=== PATIENT | female | born 1945 | race Hispanic/Latino ===

== ENCOUNTER 2017-10-16 14:06 | Emergency (ER) | payer MEDICARE, BC ==
[2017-10-16 14:21] VITALS: TEMP 98.6
--- NOTE | 2017-10-16 15:46 | ED PDOC ---
Arrival/HPI - General Chief Complaint: Trauma Time Seen by Provider: 10/16/17 14:20 Historian: Patient - History of Present Illness Narrative History of Present Illness (Text): 10/16/17 15:43 71yo female with PMhx of hypertension bib Bls for complaint of tail bone pain and headache s/p trauma yesterday. Patient states she missed her soft, while trying to sit and fell backwards. States she hit her head on object that was behind her and sat hard on the floor very hard on her buttocks. States she did not take any medication for the pain. Came to ED for evaluation. Denies LOC, nausea, vomiting, focal weakness, urinary/fecal incontinence, dizziness, any other complaint. Past Medical History - Provider Review Nursing Documentation Reviewed: Yes - Infectious Disease Hx of Infectious Diseases: None - Cardiac Hx Hypertension: Yes - Psychiatric Hx Depression: Yes Hx Substance Use: No Family/Social History - Physician Review Nursing Documentation Reviewed: Yes Family/Social History: Unknown Family HX Smoking Status: Never Smoked Hx Alcohol Use: No Hx Substance Use: No Allergies/Home Meds Allergies/Adverse Reactions: Allergies Penicillins Allergy (Verified 10/16/17 15:00) ANAPHYLAXIS Home Medications: Home Meds Medication Instructions Recorded Confirmed Lisinopril [Zestril] 1 tab PO DAILY 10/16/17 10/16/17 Propranolol [Inderal] 10 mg PO DAILY 10/16/17 10/16/17 chlorproMAZINE [chlorpromazine HCl] 100 mg PO DAILY 10/16/17 10/16/17 Review of Systems - Physician Review All systems were reviewed & negative as marked: Yes - Review of Systems Constitutional: Normal Eyes: Normal ENT: Normal Respiratory: Normal Cardiovascular: Normal Gastrointestinal: Normal Genitourinary Female: Normal Musculoskeletal: Back Pain Skin: Normal Neurological: Headache. absent: Dizziness, Focal Weakness, Speech Changes, Facial Droop Endocrine: Normal Hemo/Lymphatic: Normal Psychiatric: Normal Physical Exam Vital Signs Reviewed: Yes Vital Signs Temp Pulse Resp BP Pulse Ox 10/16/17 14:21 98.6 F 78 18 166/81 H 96 Temperature: Afebrile Blood Pressure: Normal Pulse: Regular Respiratory Rate: Normal Appearance: Positive for: Well-Appearing, Non-Toxic, Comfortable Pain Distress: None Mental Status: Positive for: Alert and Oriented X 3 - Systems Exam Head: Present: Atraumatic, Normocephalic Pupils: Present: PERRL Extroacular Muscles: Present: EOMI Conjunctiva: Present: Normal Mouth: Present: Moist Mucous Membranes Neck: Present: Normal Range of Motion Respiratory/Chest: Present: Clear to Auscultation, Good Air Exchange. No: Respiratory Distress, Accessory Muscle Use Cardiovascular: Present: Regular Rate and Rhythm, Normal S1, S2. No: Murmurs Abdomen: Present: Normal Bowel Sounds. No: Tenderness, Distention, Peritoneal Signs Back: Present: Paraspinal Tenderness (Over the sacral/coccyx area). No: CVA Tenderness, Midline Tenderness, Pain with Leg Raise Upper Extremity: Present: Normal Inspection. No: Cyanosis, Edema Lower Extremity: Present: Normal Inspection. No: Edema Neurological: Present: GCS=15, CN II-XII Intact, Speech Normal, Motor Func Grossly Intact, Normal Sensory Function, Normal Cerebellar Funct, Norm Deep Tendon Reflexes, Gait Normal, Memory Normal, Normal 2Pt Descrimination, Other ( No focal neurological deficit) Skin: Present: Warm, Dry, Normal Color. No: Rashes Psychiatric: Present: Alert, Oriented x 3, Normal Insight, Normal Concentration Medical Decision Making ED Course and Treatment: 10/16/17 18:30 PT was AAO x3 and neurologically intact. Head CT - No acute finding Sacral/coccyx xray - No fracture noted Result was DW the pt. She will be DC home with a rx of Tramdol. Referred to her PMD. - RAD Interpretation Radiology Orders: 10/16/17 15:02 HEAD W/O CONTRAST [CT] Stat 10/16/17 15:03 SACRUM &/or COCCYX (MIN 2VW) [RAD] Stat - Medication Orders Current Medication Orders: Discontinued Medications Tramadol HCl (Ultram) 50 mg PO STAT STA Stop: 10/16/17 15:57 Last Admin: 10/16/17 16:13 Dose: 50 mg BRENNAN Pain Assessment Document 10/16/17 16:13 HI (Rec: 10/16/17 16:13 NH [id number]) Pain Reassessment Is this a pain reassessment? No Disposition/Present on Arrival - Present on Arrival Any Indicators Present on Arrival: No History of DVT/PE: No History of Uncontrolled Diabetes: No Urinary Catheter: No History of Decub. Ulcer: No History Surgical Site Infection Following: None - Disposition Have Diagnosis and Disposition been Completed?: Yes Diagnosis: Back pain, Fall, Head injury Disposition: HOME/ ROUTINE Disposition Time: 18:40 Patient Plan: Discharge Condition: STABLE Discharge Instructions (ExitCare): Preventing Falls in the Older Adult, Minor Head Injury Additional Instructions: Follow up with your doctor Return to ED for any new or worsening symptoms Prescriptions: traMADol [Ultram] 50 mg PO TID #10 tab Referrals: Shanti RENDON,Ludin Solano MD [Primary Care Provider] - Follow up with primary Forms: [employer] (Tunisian)
--- NOTE | 2017-10-16 18:05 | CT ---
PROCEDURE: CT HEAD WITHOUT CONTRAST. HISTORY: head injury COMPARISON: None available. TECHNIQUE: Axial computed tomography images were obtained through the head/brain without intravenous contrast. Radiation dose: Total exam DLP = 1019.94 mGy-cm. This CT exam was performed using one or more of the following dose reduction techniques: Automated exposure control, adjustment of the mA and/or kV according to patient size, and/or use of iterative reconstruction technique. FINDINGS: HEMORRHAGE: No intracranial hemorrhage. BRAIN: No mass effect or edema. Cortical atrophy, periventricular small vessel disease. VENTRICLES: Unremarkable. No hydrocephalus. CALVARIUM: Unremarkable. PARANASAL SINUSES: Unremarkable as visualized. No significant inflammatory changes. MASTOID AIR CELLS: Unremarkable as visualized. No inflammatory changes. OTHER FINDINGS: None. IMPRESSION: No acute intracranial abnormalities. No significant findings to account for the clinical presentation.
[2017-10-16 19:26] VITALS: BP 159/75; PULSE 72; RESP 16; O2SAT 99
--- NOTE | 2017-10-17 08:38 | RAD ---
PROCEDURE: Radiographs of the Sacrum and Coccyx HISTORY: back pain s/p trauma COMPARISON: None available. TECHNIQUE: Frontal and lateral views of the sacrum and coccyx FINDINGS: BONES: Sacrum and coccyx unremarkable. No fracture or focal lesion. SACROILIAC JOINTS: Unremarkable. OTHER FINDINGS: None. IMPRESSION: Unremarkable radiographs of the sacrum and coccyx.
== END 2017-10-16 19:16 | disposition home or self-care (01) ==
LOC: ED 14:06
DX: S09.90XA Unspecified injury of head, initial encounter (principal); W08.XXXA Fall from other furniture, initial encounter; I10 Essential (primary) hypertension

== ENCOUNTER 2018-01-07 15:49 | Emergency (ER) | payer MEDICARE, BC ==
[2018-01-07 15:55] VITALS: BMI 29.7
[2018-01-07 16:02] VITALS: TEMP 97.6
--- NOTE | 2018-01-07 16:09 | ED PDOC ---
Arrival/HPI - General Chief Complaint: Lower Extremity Problem/Injury Time Seen by Provider: 01/07/18 16:00 Historian: Patient - History of Present Illness Narrative History of Present Illness (Text): 01/07/18 16:06 72 year old woman, with no significant past medical history, who presents to the emergency department complaining of left buttox pain that radiates to the sciatic notch today. Patient notes she fell a couple days ago. Patient denies any fever, chills, chest pain, shortness of breath, nausea, vomiting, diarrhea, urinary symptoms, neck pain, headache, dizziness, or any other complaints. Time/Duration: Prior to Arrival Symptom Onset: Gradual Symptom Course: Unchanged Activities at Onset: Light Context: Home Past Medical History - Provider Review Nursing Documentation Reviewed: Yes - Infectious Disease Hx of Infectious Diseases: None - Reproductive Menopause: Yes - Cardiac Hx Cardiac Disorders: Yes Hx Hypertension: Yes - Pulmonary Hx Respiratory Disorders: No - Neurological Hx Neurological Disorder: Yes Other/Comment: "nerve issues" - HEENT Hx HEENT Disorder: No - Renal Hx Renal Disorder: No - Endocrine/Metabolic Hx Endocrine Disorders: No - Hematological/Oncological Hx Blood Disorders: No - Integumentary Hx Dermatological Disorder: No - Musculoskeletal/Rheumatological Hx Musculoskeletal Disorders: No - Gastrointestinal Hx Gastrointestinal Disorders: No - Genitourinary/Gynecological Hx Genitourinary Disorders: No - Psychiatric Hx Psychophysiologic Disorder: Yes Hx Depression: Yes Hx Substance Use: No Family/Social History - Physician Review Nursing Documentation Reviewed: Yes Family/Social History: Unknown Family HX Smoking Status: Never Smoked Hx Alcohol Use: No Hx Substance Use: No Allergies/Home Meds Allergies/Adverse Reactions: Allergies Penicillins Allergy (Verified 01/07/18 15:54) ANAPHYLAXIS Home Medications: Home Meds Medication Instructions Recorded Confirmed Lisinopril [Zestril] 1 tab PO DAILY 10/16/17 01/07/18 Propranolol [Inderal] 10 mg PO DAILY 10/16/17 01/07/18 chlorproMAZINE [chlorpromazine HCl] 100 mg PO DAILY 10/16/17 01/07/18 Review of Systems - Physician Review All systems were reviewed & negative as marked: Yes - Review of Systems Constitutional: Normal Eyes: Normal ENT: Normal Respiratory: Normal. absent: SOB, Cough Cardiovascular: Normal. absent: Chest Pain Gastrointestinal: Normal. absent: Abdominal Pain Genitourinary Female: Normal. absent: Dysuria, Frequency, Hematuria, Urine Output Changes Musculoskeletal: Other (left buttox pain that radiated to the sciatic notch) Skin: Normal. absent: Rash Neurological: Normal. absent: Headache, Dizziness Endocrine: Normal Hemo/Lymphatic: Normal Psychiatric: Normal Physical Exam Vital Signs Reviewed: Yes Vital Signs Temp Pulse Resp BP Pulse Ox 01/07/18 16:00 97.6 F 76 20 166/78 H 97 Temperature: Afebrile Blood Pressure: Hypertensive Pulse: Regular Respiratory Rate: Normal Appearance: Positive for: Well-Appearing, Non-Toxic, Comfortable Pain Distress: None Mental Status: Positive for: Alert and Oriented X 3 - Systems Exam Head: Present: Atraumatic, Normocephalic Pupils: Present: PERRL Extroacular Muscles: Present: EOMI Conjunctiva: Present: Normal Mouth: Present: Moist Mucous Membranes Neck: Present: Normal Range of Motion. No: Meningeal Signs, MIDLINE TENDERNESS , JVD Respiratory/Chest: Present: Clear to Auscultation, Good Air Exchange. No: Respiratory Distress, Accessory Muscle Use Cardiovascular: Present: Regular Rate and Rhythm, Normal S1, S2. No: Murmurs Abdomen: No: Tenderness, Distention, Peritoneal Signs Back: Present: Normal Inspection Upper Extremity: Present: Normal Inspection. No: Cyanosis, Edema Lower Extremity: Present: Normal Inspection. No: Edema Neurological: Present: GCS=15, CN II-XII Intact, Speech Normal Skin: Present: Warm, Dry, Normal Color. No: Rashes Psychiatric: Present: Alert, Oriented x 3, Normal Insight, Normal Concentration Medical Decision Making ED Course and Treatment: 01/07/18 16:11 Impression: 72 year old female presents to the emergency department complaining of left buttox pain radiating to the sciatic notch. Plan: -- CT Abd and Pelvis -- CT Hip -- Lumbar Spine -- Motrin -- Zofran -- Percocet -- Reassess and disposition Progress Notes: 01/07/18 18:38 CT Abdomen Pelvis reviewed, shows: Lung bases: Mild bilateral dependent atelectasis. Minimal linear atelectasis bilaterally. ABDOMEN: Liver: Unremarkable. Gallbladder and bile ducts: Unremarkable. No calcified stones. No ductal dilation. Pancreas: Unremarkable. No ductal dilation. Spleen: Unremarkable. No splenomegaly. Adrenals: Unremarkable. No mass. Kidneys and ureters: Unremarkable. No obstructing stones. No hydronephrosis. Stomach and bowel: Chronic diverticulosis. No colitis or diverticulitis. PELVIS: Appendix: No findings to suggest acute appendicitis. Bladder: Well-distended bladder. No stones. Reproductive: Unremarkable as visualized. ABDOMEN and PELVIS: Intraperitoneal space: Unremarkable. No free air. No significant fluid collection. Bones/joints: Degenerative change. Spondylosis deformans. Oblique subacute fracture through S5 with minimal callus formation. Soft tissues: Subcutaneous stranding in the medial gluteal regions bilaterally, incompletely imaged. Vasculature: Lack of intravenous contrast limits the sensitivity of solid organ pathology. There is vascular calcification. No abdominal aortic aneurysm. Lymph nodes: Scattered subcentimeter nonspecific lymph nodes in the mesentery and periaortic region. IMPRESSION: Oblique subacute fracture through S5 with minimal callus formation. 01/07/18 18:52 CT Hip reviewed, shows: Bones/joints: Subacute or possibly chronic S5 oblique fracture. Some degenerative change. No dislocation. Soft tissues: Minimal medial gluteal subcutaneous fat stranding. IMPRESSION: Subacute or possibly chronic S5 oblique fracture. CT Rt Lower Extremity reviewed, shows: Bones/joints: Subacute or possibly chronic S5 oblique fracture. Some degenerative change. No dislocation. Soft tissues: Minimal medial gluteal subcutaneous fat stranding. IMPRESSION: Subacute or possibly chronic S5 oblique fracture. - RAD Interpretation Radiology Orders: 01/07/18 16:06 ABD & PELVIS W/O PO OR IV CONT [CT] Stat CT HIP W/O CONTRAST BILATERAL [CT] Stat LUMBAR SPINE W/O CONTRAST [CT] Stat - Medication Orders Current Medication Orders: Discontinued Medications Ibuprofen (Motrin Tab) 800 mg PO STAT STA Stop: 01/07/18 16:11 Last Admin: 01/07/18 16:48 Dose: 800 mg MAR Pain/Vitals Document 01/07/18 16:48 HI (Rec: 01/07/18 16:48 HI [id number]) Pain Reassessment Is This A Pain ReAssessment? No Sleep Is patient sleeping during reassessment? No Presence of Pain Presence of Pain Yes Location Left, Right or Bilateral Left Upper or Lower Lower Pain Location Body Site Back Ondansetron HCl (Zofran Odt) 8 mg PO STAT STA Stop: 01/07/18 16:11 Last Admin: 01/07/18 16:47 Dose: 8 mg Oxycodone/Acetaminophen (Percocet 5/325 Mg Tab) 2 tab PO STAT STA Stop: 01/07/18 16:11 Last Admin: 01/07/18 16:47 Dose: 2 tab MAR Pain Assessment Document 01/07/18 16:47 HI (Rec: 01/07/18 16:48 HI [id number]) Pain Reassessment Is this a pain reassessment? No Sleep Is patient sleeping during reassessment? No Presence of Pain Presence of Pain Yes Location Left, Right or Bilateral Left Upper or Lower Lower Pain Location Body Site Back - Scribe Statement The provider has reviewed the documentation as recorded by the Scribe Chandrika Ch All medical record entries made by the Scribe were at my direction and personally dictated by me. I have reviewed the chart and agree that the record accurately reflects my personal performance of the history, physical exam, medical decision making, and the department course for this patient. I have also personally directed, reviewed, and agree with the discharge instructions and disposition. Disposition/Present on Arrival - Present on Arrival Any Indicators Present on Arrival: No History of DVT/PE: No History of Uncontrolled Diabetes: No Urinary Catheter: No History of Decub. Ulcer: No History Surgical Site Infection Following: None - Disposition Have Diagnosis and Disposition been Completed?: Yes Diagnosis: Sciatica, Closed sacral fracture Disposition: HOME/ ROUTINE Disposition Time: 18:57 Patient Plan: Discharge Condition: GOOD Additional Instructions: Mrs Lopez- You have a broken sacrum and sciatica. All three medicines, Percocet, Zofran and Ibuprophen are three times a day, with food. Follow up with Dr. Juárez, return to us if problems. Best- Dr. Lalit Beaver Referrals: John Lynn APN [Primary Care Provider] - Follow up with primary Isis Juárez MD [Staff Provider] - Follow up with primary Forms: [employer] (Icelandic)
[2018-01-07] MEDS ORDERED: Oxycodone/Acetaminophen 5/325 mg Tab PO STA (16:10)
--- NOTE | 2018-01-07 18:34 | CT ---
EXAM: CT Abdomen and Pelvis Without Intravenous Contrast CLINICAL HISTORY: 72 years old, female; Injury or trauma; Fall; Initial encounter; Sprain or strain; Injury date: 01-07-18; Additional info: Fall, pain in buttox and left hip TECHNIQUE: Axial computed tomography images of the abdomen and pelvis without intravenous contrast. All CT scans at this facility use one or more dose reduction techniques, viz.: automated exposure control; ma/kV adjustment per patient size (including targeted exams where dose is matched to indication; i.e. head); or iterative reconstruction technique. Coronal and sagittal reformatted images were created and reviewed. COMPARISON: DX - SACRUM /OR COCCYX (MIN 2VW) 2017-10-16 17:43 FINDINGS: Lung bases: Mild bilateral dependent atelectasis. Minimal linear atelectasis bilaterally. ABDOMEN: Liver: Unremarkable. Gallbladder and bile ducts: Unremarkable. No calcified stones. No ductal dilation. Pancreas: Unremarkable. No ductal dilation. Spleen: Unremarkable. No splenomegaly. Adrenals: Unremarkable. No mass. Kidneys and ureters: Unremarkable. No obstructing stones. No hydronephrosis. Stomach and bowel: Chronic diverticulosis. No colitis or diverticulitis. PELVIS: Appendix: No findings to suggest acute appendicitis. Bladder: Well-distended bladder. No stones. Reproductive: Unremarkable as visualized. ABDOMEN and PELVIS: Intraperitoneal space: Unremarkable. No free air. No significant fluid collection. Bones/joints: Degenerative change. Spondylosis deformans. Oblique subacute fracture through S5 with minimal callus formation. Soft tissues: Subcutaneous stranding in the medial gluteal regions bilaterally, incompletely imaged. Vasculature: Lack of intravenous contrast limits the sensitivity of solid organ pathology. There is vascular calcification. No abdominal aortic aneurysm. Lymph nodes: Scattered subcentimeter nonspecific lymph nodes in the mesentery and periaortic region. IMPRESSION: Oblique subacute fracture through S5 with minimal callus formation.
--- NOTE | 2018-01-07 18:39 | CT ---
EXAM: CT Lumbar Spine Without Intravenous Contrast CLINICAL HISTORY: 72 years old, female; Injury or trauma; Fall; Initial encounter; Sprain or strain, lumbar ligaments; Injury date: 01-07-18; Injury details: Pain lt hip; Additional info: Fall, pain in buttox and left hip TECHNIQUE: Axial computed tomography images of the lumbar spine without intravenous contrast. All CT scans at this facility use one or more dose reduction techniques, viz.: automated exposure control; ma/kV adjustment per patient size (including targeted exams where dose is matched to indication; i.e. head); or iterative reconstruction technique. Coronal and sagittal reformatted images were created and reviewed. COMPARISON: No relevant prior studies available. FINDINGS: Vertebrae: Spondylosis deformans of the lumbar spine. Old fracture through the anterior superior osteophyte at L2 on the left. Left L4 and L5 neural foraminal narrowing. Degenerative change of the facet joints of the lower lumbar spine. Sacrum/coccyx: Oblique subacute fracture through S5. Discs/spinal canal/neural foramina: Posterior disc bulge at all levels though more prominent at L2/3 through L4/5, which narrows the spinal canal, along with ligamentum flavum hypertrophy. Soft tissues: Unremarkable. Vasculature: There is vascular calcification. No abdominal aortic aneurysm. Other findings: Vacuum phenomenon at the sacroiliac joints bilaterally. IMPRESSION: Oblique subacute fracture through S5. Degenerative changes as above.
--- NOTE | 2018-01-07 18:43 | CT ---
EXAM: CT Left Lower Extremity Without Intravenous Contrast, Hip CLINICAL HISTORY: 72 years old, female; Injury or trauma; Fall; Initial encounter; Blunt trauma; Hip; Left; Injury date: 01-07-18; Injury details: Pain in lt hip; Additional info: Fall, pain in buttox and left hip TECHNIQUE: Axial computed tomography images of the left hip without intravenous contrast. All CT scans at this facility use one or more dose reduction techniques, viz.: automated exposure control; ma/kV adjustment per patient size (including targeted exams where dose is matched to indication; i.e. head); or iterative reconstruction technique. Coronal and sagittal reformatted images were created and reviewed. COMPARISON: CT - ABD PELVIS W/O PO OR IV CONT 2018-01-07 17:24 FINDINGS: Bones/joints: Subacute or possibly chronic S5 oblique fracture. Some degenerative change. No dislocation. Soft tissues: Minimal medial gluteal subcutaneous fat stranding. IMPRESSION: Subacute or possibly chronic S5 oblique fracture. EXAM: CT Right Lower Extremity Without Intravenous Contrast, Hip CLINICAL HISTORY: 72 years old, female; Injury or trauma; Fall; Initial encounter; Blunt trauma; Hip; Left; Injury date: 01-07-18; Injury details: Pain in lt hip; Additional info: Fall, pain in buttox and left hip TECHNIQUE: Axial computed tomography images of the right hip without intravenous contrast. All CT scans at this facility use one or more dose reduction techniques, viz.: automated exposure control; ma/kV adjustment per patient size (including targeted exams where dose is matched to indication; i.e. head); or iterative reconstruction technique. Coronal and sagittal reformatted images were created and reviewed. COMPARISON: CT - ABD PELVIS W/O PO OR IV CONT 2018-01-07 17:24 FINDINGS: Bones/joints: Subacute or possibly chronic S5 oblique fracture. Some degenerative change. No dislocation. Soft tissues: Minimal medial gluteal subcutaneous fat stranding.
[2018-01-07 19:37] VITALS: BP 145/75; PULSE 78; RESP 18; O2SAT 98
== END 2018-01-07 19:37 | disposition home or self-care (01) ==
LOC: ED 15:49
DX: M54.30 Sciatica, unspecified side (principal); S32.10XA Unspecified fracture of sacrum, initial encounter for closed fracture; W19.XXXA Unspecified fall, initial encounter; I10 Essential (primary) hypertension

== ENCOUNTER 2018-01-20 13:08 | Emergency (ER) | payer MEDICARE, BC ==
[2018-01-20 13:09] VITALS: BMI 29.7
[2018-01-20 13:18] VITALS: RESP 18
[2018-01-20 14:16] LABS: BASO # 0.02 K/mm3 (0.0-2.0); BASO % 0.4 % (0.0-3.0); EOS # 0.1 (0.0-0.7); EOS % 2.4 % (1.5-5.0); GRAN # 3.04 (1.4-6.5); GRAN % 61.4 % (50.0-68.0); HEMOGLOBIN 10.1 g/dL (12.0-16.0); LYMPH # 1.5 (1.2-3.4); LYMPH % 29.3 % (22.0-35.0); MEAN CORPUSCULAR HEMOGLOBIN 29.2 pg (25.0-35.0); MEAN CORPUSCULAR HGB CONC 34.4 g/dl (31.0-37.0); MEAN PLATELET VOLUME 8.7 fl (7.0-11.0); MONO # 0.3 (0.1-0.6); MONO % 6.5 % (1.0-6.0); RBC 3.46 10^6/uL (3.5-6.1); RED CELL DISTRIBUTION WIDTH 13.5 % (11.5-14.5)
[2018-01-20 14:26] LABS: ALB/GLOB RATIO 1.4 (1.1-1.8); ALBUMIN 4.3 g/dL (3.0-4.8); ALT/SGPT 43 U/L (7-56); AST/SGOT 36 U/L (14-36); BLOOD UREA NITROGEN 22 mg/dL (7-21); CALCIUM 9.5 mg/dL (8.4-10.5); GFR AFRICAN-AMERICAN > 60; GFR NON-AFRICAN AMERICAN 55
[2018-01-20 14:35] LABS: B-TYPE NATRIURETIC PEPTIDE 92.5 pg/mL (0-450)
--- NOTE | 2018-01-20 14:42 | RAD ---
HISTORY: leg swelling COMPARISON: No prior. FINDINGS: LUNGS: No active pulmonary disease. PLEURA: No significant pleural effusion identified, no pneumothorax apparent. CARDIOVASCULAR: Mild cardiomegaly OSSEOUS STRUCTURES: No significant abnormalities. VISUALIZED UPPER ABDOMEN: Normal. OTHER FINDINGS: None. IMPRESSION: No active disease.
[2018-01-20 14:58] LABS: PH,URINE 7.5 (4.7-8.0); URINE APPEARANCE CLEAR (CLEAR); URINE BILIRUBIN NEGATIVE (NEGATIVE); URINE BLOOD NEGATIVE (NEGATIVE); URINE COLOR LIGHT YELLOW (YELLOW); URINE GLUCOSE (UA) NEGATIVE (NEGATIVE); URINE LEUKOCYTE ESTERASE LARGE Leu/uL (NEGATIVE); URINE PROTEIN NEGATIVE mg/dL (<30 mg/dL); URINE UROBILINOGEN 0.2 E.U./dL (<1 E.U./dL)
[2018-01-20 15:12] LABS: URINE EPITHELIAL CELLS 0 - 2 /hpf (0-5); URINE RBC NEGATIVE /hpf (0-2); URINE WBC 0 - 2 /hpf (0-6)
--- NOTE | 2018-01-20 16:10 | ED PDOC ---
Arrival/HPI - General Historian: Patient - General Chief Complaint: Lower Extremity Problem/Injury Time Seen by Provider: 01/20/18 13:26 - History of Present Illness Narrative History of Present Illness (Text): 01/20/18 15:36 72yr old female presents today with bilateral lower leg swelling. pt denies trauma or injury. pt denies CP or SOB. no vomiting/diarrhea. no dizziness or weakness. pt denies abdominal pain. no urinary symptoms. no fever/chills. pt states she woke up today and noticed some swelling to the lower legs/ankles bilaterally. pt denies numbness, weakness, or tingling in the extremity. no other complaints. (Marina Mcdonald) Past Medical History - Provider Review Nursing Documentation Reviewed: Yes - Travel History Have you recently traveled outside [place] w/in the past 3 mons?: No - Infectious Disease Hx of Infectious Diseases: None - Reproductive Menopause: Yes - Cardiac Hx Cardiac Disorders: Yes Hx Hypertension: Yes - Pulmonary Hx Respiratory Disorders: No - Neurological Hx Neurological Disorder: Yes Other/Comment: "nerve issues" - HEENT Hx HEENT Disorder: No - Renal Hx Renal Disorder: No - Endocrine/Metabolic Hx Endocrine Disorders: No - Hematological/Oncological Hx Blood Disorders: No - Integumentary Hx Dermatological Disorder: No - Musculoskeletal/Rheumatological Hx Musculoskeletal Disorders: No - Gastrointestinal Hx Gastrointestinal Disorders: No - Genitourinary/Gynecological Hx Genitourinary Disorders: No - Psychiatric Hx Psychophysiologic Disorder: Yes Hx Depression: Yes Hx Substance Use: No Family/Social History - Physician Review Nursing Documentation Reviewed: Yes Family/Social History: Unknown Family HX Smoking Status: Never Smoked Hx Alcohol Use: No Hx Substance Use: No Allergies/Home Meds Allergies/Adverse Reactions: Allergies Penicillins Allergy (Verified 01/20/18 13:18) ANAPHYLAXIS Home Medications: Home Meds Medication Instructions Recorded Confirmed Lisinopril [Zestril] 20 mg PO DAILY 10/16/17 01/20/18 Propranolol [Inderal] 10 mg PO DAILY 10/16/17 01/20/18 chlorproMAZINE [chlorpromazine HCl] 100 mg PO DAILY 10/16/17 01/20/18 Review of Systems - Review of Systems Constitutional: absent: Fatigue, Fevers Respiratory: absent: SOB, Cough Cardiovascular: absent: Chest Pain, Palpitations, Syncope Gastrointestinal: absent: Abdominal Pain, Nausea, Vomiting Genitourinary Female: absent: Dysuria, Frequency, Hematuria, Vaginal Bleeding, Vaginal Discharge Musculoskeletal: Other (bilateral leg swelling). absent: Arthralgias, Back Pain , Neck Pain Skin: absent: Rash, Pruritis Neurological: absent: Headache, Dizziness Psychiatric: absent: Anxiety, Depression Physical Exam Vital Signs Reviewed: Yes Temperature: Afebrile Blood Pressure: Normal Pulse: Regular Respiratory Rate: Normal Appearance: Positive for: Well-Appearing, Non-Toxic, Comfortable Pain Distress: None Mental Status: Positive for: Alert and Oriented X 3 - Systems Exam Head: Present: Atraumatic Mouth: Present: Moist Mucous Membranes Respiratory/Chest: Present: Clear to Auscultation Cardiovascular: Present: Regular Rate and Rhythm Abdomen: No: Tenderness, Distention, Peritoneal Signs, Rebound, Guarding Back: Present: Normal Inspection. No: CVA Tenderness, Midline Tenderness, Paraspinal Tenderness Upper Extremity: Present: Normal ROM Lower Extremity: Present: Normal ROM, Swelling (+ minimal swelling b/l lower legs/ankles bilaterally; non pitting edema), Neurovascularly Intact, Capillary Refill < 2 s. No: Tenderness, Erythema, Deformity Neurological: Present: GCS=15, Speech Normal Skin: Present: Warm, Dry, Normal Color. No: Rashes Psychiatric: Present: Alert, Oriented x 3 Vital Signs Temp Pulse Resp BP Pulse Ox 01/20/18 18:09 98.2 F 78 140/78 97 01/20/18 16:39 98.6 F 76 18 136/80 97 01/20/18 13:16 98.6 F 71 18 142/75 99 01/20/18 13:09 98.6 F 71 18 142/75 99 Medical Decision Making ED Course and Treatment: 01/20/18 16:33 Patient is nontoxic well-appearing in no distress with stable vital signs lungs are clear to auscultation bilaterally. CBC within normal limits CMP within normal limits Troponin within normal limits EKG: NSR at 71 b/m no st elevations, rbbb, normal axis. reviewed by dr. alonzo. Chest x-ray shows cardiomegaly mild Venous duplex of the lower extremities bilaterally: Negative for DVT verbal report by solar lab technician Patient reassessment; patient is nontoxic well-appearing in no distress with stable vital signs pt seen and evaluated by dr. alonzo. I discussed the results with patient about followup with a primary care physician within the next 2 days as well as the orthopedist. I've advised return if symptoms worsen persist or if there's concerning symptoms develop. Patient verbalizes understanding of discharge instructions and need for immediate followup. all aspects of this case were discussed the attending of record. Impression: Lower leg swelling Followup primary care physician within the next 2 days Return if symptoms worsen persist or if new symptoms develop (Marina Mcdonald) 01/22/18 07:22 Patient with no chest pain, no shortness of breath. No cellulitis noted. Strong distal pulses noted. No dsypnea with exertion. Labs reviewed with patient. On exam, no palpable lower abdominal masses. Ambulatory with no back pain or knee or hip pain reported. Patient advised closed follow-up with PMD for re- evaluation later this week. Stressed need for close follow-up. (Regan Alonzo) - Lab Interpretations Microbiology Results: Microbiology Results 01/20/18 15:29 Urine,Clean Catch Urine Culture - Final No Growth (<1,000 CFU/ML) Lab Results: 01/20/18 14:14 01/20/18 14:14 Lab Results 01/20/18 16:00: Lactate Dehydrogenase 541, Total Creatine Kinase 195, Troponin I < 0.01 01/20/18 14:45: Urine Color Light yellow, Urine Appearance Clear, Urine pH 7.5, Ur Specific [place] 1.010, Urine Protein Negative, Urine Glucose (UA) Negative, Urine Ketones Negative, Urine Blood Negative, Urine Nitrate Negative, Urine Bilirubin Negative, Urine Urobilinogen 0.2, Ur Leukocyte Esterase Large H, Urine RBC Negative, Urine WBC 0 - 2, Ur Epithelial Cells 0 - 2 01/20/18 14:14: WBC 5.0, RBC 3.46 L, Hgb 10.1 L, Hct 29.4 L, MCV 85.0, MCH 29.2 , MCHC 34.4, RDW 13.5, Plt Count 251, MPV 8.7, Gran % 61.4, Lymph % (Auto) 29.3 , [place] % (Auto) 6.5 H, Eos % (Auto) 2.4, Baso % (Auto) 0.4, Gran # 3.04, Lymph # (Auto) 1.5, [place] # (Auto) 0.3, Eos # (Auto) 0.1, Baso # (Auto) 0.02 01/20/18 14:14: Sodium 134, Potassium 4.3, Chloride 95 L, Carbon Dioxide 27, Anion Gap 16, BUN 22 H, Creatinine 1.0, Est GFR ( Amer) > 60, Est GFR ( Non-Af Amer) 55, Random Glucose 86, Calcium 9.5, Total Bilirubin 0.2, AST 36, ALT 43, Alkaline Phosphatase 61, NT-Pro-B Natriuret Pep 92.5, Total Protein 7.4 , Albumin 4.3, Globulin 3.1, Albumin/Globulin Ratio 1.4 - RAD Interpretation Radiology Orders: 01/20/18 13:48 CHEST PORTABLE [RAD] Stat DUPLEX LOWER EXTRM VEIN BILAT [US] Stat Disposition/Present on Arrival - Present on Arrival Any Indicators Present on Arrival: No History of DVT/PE: No History of Uncontrolled Diabetes: No Urinary Catheter: No History of Decub. Ulcer: No History Surgical Site Infection Following: None - Disposition Have Diagnosis and Disposition been Completed?: Yes Disposition Time: 16:00 - Disposition Diagnosis: Leg edema Disposition: HOME/ ROUTINE Condition: GOOD Discharge Instructions (ExitCare): Dependent Edema (DC) Additional Instructions: For ANY chest pain, any shortness of breath, any redness or pain, ANY abdominal pain, any difficulty urinating, any vaginal bleeding, any lightheadedness or dizziness, any back pain, any rash, any persistent or worsening of symptoms, get rechecked. Follow-up with your physician this week to have your legs rechecked and symptoms rechecked. No strenuous activity. For any shortness of breath or fatigue get rechecked immediately. Referrals: John Lynn APN [Primary Care Provider] - Follow up with primary Forms: [email or web address] ([place])
[2018-01-20 16:42] LABS: TROPONIN I < 0.01 ng/mL
[2018-01-20 16:47] VITALS: O2SAT 97
--- NOTE | 2018-01-20 18:02 | US ---
HISTORY: Leg pain and swelling. Evaluate for DVT PHYSICIAN(S): Richard Shelton MD. TECHNIQUE: Duplex sonography and color-flow Doppler with graded compression were used to evaluate the deep venous systems of both lower extremities. The exam is somewhat limited by edema FINDINGS: The visualized deep venous systems of both lower extremities are sonographically normal and compressible. Normal wave forms and augmentation are seen. There is no sonographic evidence for deep venous thrombosis in the visualized segments of both lower extremities. IMPRESSION: No sonographic evidence for deep venous thrombosis in the visualized segments of both lower extremities.
[2018-01-20 18:10] VITALS: BP 140/78; PULSE 78; TEMP 98.2
--- NOTE | 2018-01-21 10:00 | CARD ---
APPROVED REPORT EKG Measurement Heart [id number] <Conclusion> Normal sinus rhythm Right bundle branch block Possible Lateral infarct, age undetermined LAD
== END 2018-01-20 18:09 | disposition home or self-care (01) ==
LOC: ED 13:08
DX: R60.0 Localized edema (principal); I10 Essential (primary) hypertension

== ENCOUNTER 2018-03-18 05:45 | Emergency (ER) | payer MEDICARE, BC ==
[2018-03-18 05:47] VITALS: BMI 29.4
[2018-03-18 05:53] VITALS: TEMP 97.4
--- NOTE | 2018-03-18 06:39 | ED PDOC ---
Arrival/HPI - General Chief Complaint: Upper Extremity Problem/Injury Time Seen by Provider: 03/18/18 05:46 - History of Present Illness Narrative History of Present Illness (Text): 03/18/18 06:37 72 yo female, hx of htn, presents with left shoulder pain since october. pt poor historian, states no known trauma. pt poor historian. pt does not request pain meds. no fevers. no other complaints. Past Medical History - Infectious Disease Hx of Infectious Diseases: None - Reproductive Menopause: Yes - Cardiac Hx Cardiac Disorders: Yes Hx Hypertension: Yes - Pulmonary Hx Respiratory Disorders: No - Neurological Hx Neurological Disorder: Yes Other/Comment: "nerve issues" - HEENT Hx HEENT Disorder: No - Renal Hx Renal Disorder: No - Endocrine/Metabolic Hx Endocrine Disorders: No - Hematological/Oncological Hx Blood Disorders: No - Integumentary Hx Dermatological Disorder: No - Musculoskeletal/Rheumatological Hx Musculoskeletal Disorders: No - Gastrointestinal Hx Gastrointestinal Disorders: No - Genitourinary/Gynecological Hx Genitourinary Disorders: No - Psychiatric Hx Psychophysiologic Disorder: Yes Hx Depression: Yes Hx Substance Use: No Family/Social History - Physician Review Nursing Documentation Reviewed: Yes Family/Social History: Unknown Family HX Smoking Status: Never Smoked Hx Alcohol Use: No Hx Substance Use: No Allergies/Home Meds Allergies/Adverse Reactions: Allergies Penicillins Allergy (Verified 03/18/18 05:47) ANAPHYLAXIS lemon Adverse Reaction (Verified 03/18/18 05:47) RASH Home Medications: Home Meds Medication Instructions Recorded Confirmed Lisinopril [Zestril] 20 mg PO DAILY 10/16/17 03/18/18 Propranolol [Inderal] 10 mg PO DAILY 10/16/17 03/18/18 chlorproMAZINE [Thorazine] 1 tab PO HS 03/18/18 03/18/18 Review of Systems - Review of Systems Constitutional: Normal Eyes: Normal ENT: Normal Respiratory: Normal Cardiovascular: Normal Gastrointestinal: Normal Genitourinary Female: Normal Musculoskeletal: Other (shoulder left pain) Skin: Normal Neurological: Normal Endocrine: Normal Hemo/Lymphatic: Normal Psychiatric: Normal Physical Exam Vital Signs Temp Pulse Resp BP Pulse Ox 03/18/18 07:16 81 18 135/78 99 03/18/18 05:50 97.4 F L 79 20 145/80 97 Temperature: Afebrile Blood Pressure: Normal Pulse: Regular Respiratory Rate: Normal Appearance: Positive for: Well-Appearing, Non-Toxic, Comfortable Pain Distress: None Mental Status: Positive for: Alert and Oriented X 3 - Systems Exam Head: Present: Atraumatic, Normocephalic Pupils: Present: PERRL Extroacular Muscles: Present: EOMI Conjunctiva: Present: Normal Mouth: Present: Moist Mucous Membranes Neck: Present: Normal Range of Motion Respiratory/Chest: Present: Clear to Auscultation, Good Air Exchange. No: Respiratory Distress, Accessory Muscle Use Cardiovascular: Present: Regular Rate and Rhythm, Normal S1, S2. No: Murmurs Abdomen: No: Tenderness, Distention, Peritoneal Signs Back: Present: Normal Inspection Upper Extremity: Present: Normal Inspection. No: Cyanosis, Edema Lower Extremity: Present: Normal Inspection. No: Edema Neurological: Present: GCS=15, CN II-XII Intact, Speech Normal, Motor Func Grossly Intact Skin: Present: Warm, Dry, Normal Color. No: Rashes Psychiatric: Present: Alert, Oriented x 3, Normal Insight, Normal Concentration , Normal Affect, Normal Mood. No: Delusional, Hallucinations Medical Decision Making ED Course and Treatment: 03/22/18 07:36 chronic shoulder pain. no cp. xr neg, does not want pain meds. stable for dc. - RAD Interpretation Radiology Orders: 03/18/18 06:04 SHOULDER LEFT [RAD] Stat - Medication Orders Current Medication Orders: Discontinued Medications Acetaminophen (Tylenol 325mg Tab) 975 mg PO STAT STA Stop: 03/18/18 06:07 Last Admin: 03/18/18 07:15 Dose: Not Given Non-Admin Reason: Patient Refused Disposition/Present on Arrival - Present on Arrival Any Indicators Present on Arrival: No History of DVT/PE: No History of Uncontrolled Diabetes: No Urinary Catheter: No History of Decub. Ulcer: No History Surgical Site Infection Following: None - Disposition Have Diagnosis and Disposition been Completed?: Yes Diagnosis: Shoulder pain Disposition: HOME/ ROUTINE Disposition Time: 07:00 Condition: STABLE Discharge Instructions (ExitCare): Shoulder Pain (DC) Additional Instructions: please see specialist. return to er with worsening symptoms or concerns. Prescriptions: Naproxen [Naprosyn] 500 mg PO BID PRN #14 tablet PRN Reason: Pain, Mild (1-3) Referrals: John Lynn APN [Primary Care Provider] - Follow up with primary Alex Graham DO [Staff Provider] - Follow up with primary Forms: [employer] (Mauritanian)
[2018-03-18 07:18] VITALS: BP 135/78; PULSE 81; RESP 18; O2SAT 99
--- NOTE | 2018-03-18 08:48 | RAD ---
Date of service: 03/18/2018 PROCEDURE: Radiographs of the Left Shoulder HISTORY: pain COMPARISON: No prior. FINDINGS: BONES: Bone alignment and mineralization are normal. There is no acute displaced fracture or bone destruction. JOINTS: Normal. Glenohumeral and acromioclavicular joints preserved. No osteoarthritis. SOFT TISSUES: The small curvilinear calcification posterior lateral to the humeral head. OTHER FINDINGS: None. IMPRESSION: No acute fracture or dislocation. No significant degenerative osteoarthrosis. Small curvilinear calcification posterior lateral to the humeral head may represent calcific tendinitis in the appropriate clinical setting.
== END 2018-03-18 07:16 | disposition home or self-care (01) ==
LOC: ED 05:45
DX: M25.512 Pain in left shoulder (principal); I10 Essential (primary) hypertension

== ENCOUNTER 2018-04-06 05:15 | Emergency (ER) | payer MEDICARE, BC ==
[2018-04-06 05:15] VITALS: BMI 29.4
[2018-04-06 05:28] VITALS: RESP 18
[2018-04-06] MEDS ORDERED: Sodium Chloride 0.9% 500 ML IV SCH (06:15)
--- NOTE | 2018-04-06 06:24 | ED PDOC ---
Arrival/HPI - General Chief Complaint: Abdominal Pain Time Seen by Provider: 04/06/18 05:50 - History of Present Illness Narrative History of Present Illness (Text): 04/06/18 06:25 72 yr old female w/ hx of anxiety, HTN p/w abdominal pain and weakness. Abdominal pain began 2 hours prior, diffusely suprapubic and LLQ, felt like a shooting pain. First time occurence. Pt notes feeling diffusely weak at the same time. There was no slurred speech, one sided weakness, dizziness or difficulty ambulating. Pt also notes that she has been fasting over the past week for religion reasons. She denies any constipation, diarrhea, dark or bloody stool. No headache, nausea or vomiting. No chest pain or sob. No fever, chills or night sweats. No vaginal d/c. No other complaints. Past Medical History - Provider Review Nursing Documentation Reviewed: Yes - Travel History Have you recently traveled outside [place] w/in the past 3 mons?: Yes If Yes, travel location?: [facility] & [place] - Infectious Disease Hx of Infectious Diseases: None - Cardiac Hx Cardiac Disorders: Yes Hx Hypertension: Yes - Pulmonary Hx Respiratory Disorders: No - Neurological Hx Neurological Disorder: Yes Other/Comment: "nerve issues" - HEENT Hx HEENT Disorder: No - Renal Hx Renal Disorder: No - Endocrine/Metabolic Hx Endocrine Disorders: No - Hematological/Oncological Hx Blood Disorders: No - Integumentary Hx Dermatological Disorder: No - Musculoskeletal/Rheumatological Hx Musculoskeletal Disorders: No - Gastrointestinal Hx Gastrointestinal Disorders: No - Genitourinary/Gynecological Hx Genitourinary Disorders: No - Psychiatric Hx Psychophysiologic Disorder: Yes Hx Depression: Yes Hx Substance Use: No Family/Social History - Physician Review Nursing Documentation Reviewed: Yes Family/Social History: Unknown Family HX Smoking Status: Never Smoked Hx Alcohol Use: No Hx Substance Use: No Allergies/Home Meds Allergies/Adverse Reactions: Allergies Penicillins Allergy (Verified 04/07/18 20:22) ANAPHYLAXIS lemon Adverse Reaction (Verified 04/07/18 20:22) RASH Home Medications: Home Meds Medication Instructions Recorded Confirmed Lisinopril [Zestril] 20 mg PO DAILY 10/16/17 04/07/18 Propranolol [Inderal] 10 mg PO DAILY 10/16/17 04/07/18 chlorproMAZINE [Thorazine] 1 tab PO HS 03/18/18 04/07/18 Review of Systems - Review of Systems Constitutional: Fatigue Eyes: Normal ENT: Normal Respiratory: Normal Cardiovascular: Normal Gastrointestinal: Abdominal Pain Genitourinary Female: Normal Musculoskeletal: Normal Skin: Normal Neurological: Normal Endocrine: Normal Hemo/Lymphatic: Normal Psychiatric: Normal Physical Exam Vital Signs Reviewed: Yes Vital Signs Temp Pulse Resp BP Pulse Ox 04/06/18 08:58 98.5 F 78 18 132/77 99 04/06/18 07:30 98.2 F 77 18 134/79 98 04/06/18 05:22 97.7 F 81 18 145/70 96 Temperature: Afebrile Blood Pressure: Normal Pulse: Regular Respiratory Rate: Normal Appearance: Positive for: Well-Appearing, Non-Toxic, Comfortable Pain Distress: None Mental Status: Positive for: Alert and Oriented X 3 - Systems Exam Head: Present: Atraumatic, Normocephalic Pupils: Present: PERRL Extroacular Muscles: Present: EOMI Conjunctiva: Present: Normal Mouth: Present: Moist Mucous Membranes Neck: Present: Normal Range of Motion Respiratory/Chest: Present: Clear to Auscultation, Good Air Exchange. No: Respiratory Distress, Accessory Muscle Use, Wheezes Cardiovascular: Present: Regular Rate and Rhythm, Normal S1, S2. No: Murmurs Abdomen: Present: Tenderness (LLQ, RLQ, Suprapubic), Normal Bowel Sounds. No: Distention, Peritoneal Signs, Rebound, Guarding, Hernias Back: Present: Normal Inspection. No: CVA Tenderness Upper Extremity: Present: Normal Inspection. No: Cyanosis, Edema Lower Extremity: Present: Normal Inspection. No: Edema Neurological: Present: GCS=15, CN II-XII Intact, Speech Normal, Motor Func Grossly Intact, Normal Sensory Function, Normal Cerebellar Funct, Gait Normal, Memory Normal Skin: Present: Warm, Dry, Normal Color. No: Rashes Psychiatric: Present: Alert, Oriented x 3, Normal Insight, Normal Concentration , Anxious. No: Depressed Mood, Suicidal Ideation, Homicidal Ideation, Delusional, Hallucinations, Intoxicated, Lethargic Medical Decision Making ED Course and Treatment: 04/06/18 06:29 72 yr old female w/ hx of HTN + anxiety w/ recent hx of fasting p/w abdominal pain and diffuse weakness without stroke like symptoms. Given LLQ and RLQ pain as well as suprapubic pain will seek CT to rule out appendix, and diverticulitis. Will seek urine for ?UTI. Will also seek troponin and EKG given age and HTN as well as atypical presentation for ACS. Pending imaging and labs. Will likely sign out to oncoming physician pending labs and CT. - Lab Interpretations Lab Results: 04/06/18 06:00 04/06/18 06:00 Lab Results 04/06/18 06:45: pO2 37, VBG pH 7.33, VBG pCO2 53.0, VBG HCO3 27.9, VBG Total CO2 29.5 H, VBG O2 Sat (Calc) 66.3 H, VBG Base Excess 1.0, VBG Potassium 3.9, Glucose 117 H, Lactate 0.7, FiO2 21.0, Sodium 136.0, Chloride 104.0, Venous Blood Potassium 3.9 04/06/18 06:15: Urine Color Light yellow, Urine Appearance Clear, Urine pH 6.0, Ur Specific [place] 1.010, Urine Protein Negative, Urine Glucose (UA) Negative, Urine Ketones Negative, Urine Blood Negative, Urine Nitrate Negative, Urine Bilirubin Negative, Urine Urobilinogen 0.2, Ur Leukocyte Esterase Negative 04/06/18 06:00: TSH 3rd Generation 1.31 04/06/18 06:00: Sodium 138, Potassium 4.1, Chloride 99, Carbon Dioxide 27, Anion Gap 16, BUN 22 H, Creatinine 1.1, Est GFR ( Amer) 59, Est GFR (Non- Af Amer) 49, Random Glucose 107, Calcium 9.1, Total Bilirubin 0.8, AST 32, ALT 29, Alkaline Phosphatase 73, Troponin I < 0.01, Total Protein 7.3, Albumin 4.1, Globulin 3.3, Albumin/Globulin Ratio 1.2, Lipase 39 04/06/18 06:00: WBC 7.9 D, RBC 3.40 L, Hgb 9.8 L, Hct 29.6 L, MCV 87.1, MCH 28.8, MCHC 33.1, RDW 14.1, Plt Count 230, MPV 9.6, Gran % 77.9 H, Lymph % (Auto ) 13.5 L, [place] % (Auto) 6.6 H, Eos % (Auto) 1.6, Baso % (Auto) 0.4, Gran # 6.15 , Lymph # (Auto) 1.1 L, [place] # (Auto) 0.5, Eos # (Auto) 0.1, Baso # (Auto) 0.03 04/06/18 05:27: POC Glucose (mg/dL) 75 - RAD Interpretation Radiology Orders: 04/06/18 06:03 ABD & PELVIS IV CONTRAST ONLY [CT] Stat - Medication Orders Current Medication Orders: Discontinued Medications Ciprofloxacin (Cipro) 500 mg PO ONCE STA PRN Reason: Protocol Stop: 04/06/18 08:47 Last Admin: 04/06/18 08:53 Dose: 500 mg Sodium Chloride (Sodium Chloride 0.9%) 500 mls @ 60 mls/hr IV [id number] CARMITA Last Admin: 04/06/18 06:33 Dose: 60 mls/hr eMAR Start Stop Document 04/06/18 06:33 RG (Rec: 04/06/18 06:37 RG [id number]) Intravenous Solution Start Date 04/06/18 Start Time 06:33 Metronidazole (Flagyl) 500 mg PO STAT STA PRN Reason: Protocol Stop: 04/06/18 08:47 Last Admin: 04/06/18 08:53 Dose: 500 mg Disposition/Present on Arrival - Present on Arrival Any Indicators Present on Arrival: No History of DVT/PE: No History of Uncontrolled Diabetes: No Urinary Catheter: No History of Decub. Ulcer: No History Surgical Site Infection Following: None - Disposition Have Diagnosis and Disposition been Completed?: Yes Diagnosis: Diverticulitis Disposition: HOME/ ROUTINE Disposition Time: 07:00 Patient Problems: Current Active Problems Problem Status Onset Diverticulitis Acute Condition: IMPROVED Discharge Instructions (ExitCare): Diverticulitis Additional Instructions: MARLENE VILLALOBOS, thank you for letting us take care of you today. Your provider was Balta Collins DO and you were treated for Diverticulitis. The emergency medical care you received today was directed at your acute symptoms. If you were prescribed any medication, please fill it and take as directed. It may take several days for your symptoms to resolve. Return to the Emergency Department if your symptoms worsen, do not improve, or if you have any other problems. Please contact your doctor or call one of the physicians/clinics you have been referred to that are listed on the Patient Visit Information form that is included in your discharge packet. Bring any paperwork you were given at discharge with you along with any medications you are taking to your follow up visit. Our treatment cannot replace ongoing medical care by a primary care provider outside of the emergency department. Thank you for allowing the [facility] team to be part of your care today. If you had an X-Ray or CT scan: A Radiologist will review the ED reading if any change in treatment is needed we will contact you. If you had a blood, urine, or wound culture: It will take several days for the results, if any change in treatment is needed we will contact you. If you had an STI test: It will take 48 hours for the results. Please call after 1 week if you have not heard back. Prescriptions: Ciprofloxacin [Cipro] 500 mg PO Q12 #28 tab Metronidazole [Flagyl] 500 mg PO TID #42 tablet Referrals: Froy Avery MD [Staff Provider] - Follow up with primary Non [facility] Provider, [Non-Staff] - Follow up with primary Forms: [employer] (Korean), WORK NOTE
[2018-04-06 06:29] LABS: ALB/GLOB RATIO 1.2 (1.1-1.8); ALBUMIN 4.1 g/dL (3.0-4.8); ALT/SGPT 29 U/L (7-56); AST/SGOT 32 U/L (14-36); BASO # 0.03 K/mm3 (0.0-2.0); BASO % 0.4 % (0.0-3.0); BLOOD UREA NITROGEN 22 mg/dL (7-21); CALCIUM 9.1 mg/dL (8.4-10.5); EOS # 0.1 (0.0-0.7); EOS % 1.6 % (1.5-5.0); GFR NON-AFRICAN AMERICAN 49; GRAN # 6.15 (1.4-6.5); GRAN % 77.9 % (50.0-68.0); HEMOGLOBIN 9.8 g/dL (12.0-16.0); LIPASE 39 U/L (23-300); LYMPH # 1.1 (1.2-3.4); LYMPH % 13.5 % (22.0-35.0); MEAN CELL VOLUME 87.1 fl (80.0-105.0); MEAN CORPUSCULAR HEMOGLOBIN 28.8 pg (25.0-35.0); MEAN CORPUSCULAR HGB CONC 33.1 g/dl (31.0-37.0); MEAN PLATELET VOLUME 9.6 fl (7.0-11.0); MONO # 0.5 (0.1-0.6); MONO % 6.6 % (1.0-6.0); RBC 3.4 10^6/uL (3.5-6.1); RED CELL DISTRIBUTION WIDTH 14.1 % (11.5-14.5); WHITE BLOOD COUNT 7.9 10^3/ul (4.5-11.0)
[2018-04-06 06:37] LABS: URINE BILIRUBIN NEGATIVE (NEGATIVE); URINE BLOOD NEGATIVE (NEGATIVE); URINE GLUCOSE (UA) NEGATIVE (NEGATIVE); URINE LEUKOCYTE ESTERASE NEGATIVE Leu/uL (NEGATIVE); URINE PROTEIN NEGATIVE mg/dL (<30 mg/dL); URINE UROBILINOGEN 0.2 E.U./dL (<1 E.U./dL)
[2018-04-06 06:41] LABS: TROPONIN I < 0.01 ng/mL
[2018-04-06] MEDS ORDERED: Iohexol 350 MG/100 ML VIAL ONE (06:45)
[2018-04-06 06:48] LABS: URINE APPEARANCE CLEAR (CLEAR); URINE COLOR LIGHT YELLOW (YELLOW)
[2018-04-06 06:56] LABS: VENOUS BLOOD GAS PO2 37 mm/Hg (30-55); VENOUS BLOOD PH 7.33 (7.32-7.43)
--- NOTE | 2018-04-06 07:16 | ED PDOC ---
Physical Exam Vital Signs Reviewed: Yes Vital Signs Temp Pulse Resp BP Pulse Ox 04/06/18 07:30 98.2 F 77 18 134/79 98 04/06/18 05:22 97.7 F 81 18 145/70 96 Temperature: Afebrile Blood Pressure: Normal Pulse: Regular Respiratory Rate: Normal Appearance: Positive for: Well-Appearing, Non-Toxic, Comfortable Pain Distress: None Mental Status: Positive for: Alert and Oriented X 3 Medical Decision Making ED Course and Treatment: 04/06/18 07:13 Patient is endorsed to me by Dr. Noble Mcknight. Patient is a 72 year old female complaining of weakness, pending CT of abdomen and pelvis. 04/06/18 07:24 NSR at 82 bpm with RBBB, no change from previous EKG on 01/20/18 04/06/18 08:13 Dictator: Jyoti Strong MD Procedure: CT abdomen and pelvis with intravenous contrast Impression: There is left lower quadrant diverticulosis with surrounding inflammatory change and fluid representing acute diverticulitis. 04/06/18 08:40 Upon reassessment, Patieent is feeling better and symptoms improved, abdominal has been resolved and patient is tolerating PO fluids. CT results shows diverticulitis and out patient treatment has been discussed with patient. Patient has been prescribed with cipro and flagyl and advised to follow up with PMD in 2-3 days. Patient was also advised to return to the ER if symptoms worsen , or anything else. PMD: Dr. John Perea Mark 04/06/18 08:46 Patient was recommended a GI follow up with Dr. Avery and also recommended a possible colonoscopy. - Lab Interpretations Lab Results: 04/06/18 06:00 04/06/18 06:00 Lab Results 04/06/18 06:45: pO2 37, VBG pH 7.33, VBG pCO2 53.0, VBG HCO3 27.9, VBG Total CO2 29.5 H, VBG O2 Sat (Calc) 66.3 H, VBG Base Excess 1.0, VBG Potassium 3.9, Glucose 117 H, Lactate 0.7, FiO2 21.0, Sodium 136.0, Chloride 104.0, Venous Blood Potassium 3.9 04/06/18 06:15: Urine Color Light yellow, Urine Appearance Clear, Urine pH 6.0, Ur Specific [place] 1.010, Urine Protein Negative, Urine Glucose (UA) Negative, Urine Ketones Negative, Urine Blood Negative, Urine Nitrate Negative, Urine Bilirubin Negative, Urine Urobilinogen 0.2, Ur Leukocyte Esterase Negative 04/06/18 06:00: TSH 3rd Generation 1.31 04/06/18 06:00: Sodium 138, Potassium 4.1, Chloride 99, Carbon Dioxide 27, Anion Gap 16, BUN 22 H, Creatinine 1.1, Est GFR ( Amer) 59, Est GFR (Non- Af Amer) 49, Random Glucose 107, Calcium 9.1, Total Bilirubin 0.8, AST 32, ALT 29, Alkaline Phosphatase 73, Troponin I < 0.01, Total Protein 7.3, Albumin 4.1, Globulin 3.3, Albumin/Globulin Ratio 1.2, Lipase 39 04/06/18 06:00: WBC 7.9 D, RBC 3.40 L, Hgb 9.8 L, Hct 29.6 L, MCV 87.1, MCH 28.8, MCHC 33.1, RDW 14.1, Plt Count 230, MPV 9.6, Gran % 77.9 H, Lymph % (Auto ) 13.5 L, Wright % (Auto) 6.6 H, Eos % (Auto) 1.6, Baso % (Auto) 0.4, Gran # 6.15 , Lymph # (Auto) 1.1 L, Wright # (Auto) 0.5, Eos # (Auto) 0.1, Baso # (Auto) 0.03 04/06/18 05:27: POC Glucose (mg/dL) 75 - RAD Interpretation Radiology Orders: 04/06/18 06:03 ABD & PELVIS IV CONTRAST ONLY [CT] Stat - Medication Orders Current Medication Orders: Sodium Chloride (Sodium Chloride 0.9%) 500 mls @ 60 mls/hr IV .[id number] [facility], [facility] Last Admin: 04/06/18 06:33 Dose: 60 mls/hr eMAR Start Stop Document 04/06/18 06:33 RG (Rec: 04/06/18 06:37 RG [id number]) Intravenous Solution Start Date 04/06/18 Start Time 06:33 - Scribe Statement The provider has reviewed the documentation as recorded by the Scribliang Webster All medical record entries made by the Scribe were at my direction and personally dictated by me. I have reviewed the chart and agree that the record accurately reflects my personal performance of the history, physical exam, medical decision making, and the department course for this patient. I have also personally directed, reviewed, and agree with the discharge instructions and disposition. Disposition/Present on Arrival - Present on Arrival Any Indicators Present on Arrival: No History of DVT/PE: No History of Uncontrolled Diabetes: No Urinary Catheter: No History of Decub. Ulcer: No History Surgical Site Infection Following: None - Disposition Have Diagnosis and Disposition been Completed?: Yes Diagnosis: Diverticulitis Disposition: HOME/ ROUTINE Disposition Time: 08:45 Patient Plan: Discharge Condition: IMPROVED Discharge Instructions (ExitCare): Diverticulitis Additional Instructions: MARLENE VILLALOBOS, thank you for letting us take care of you today. Your provider was Balta Collins DO and you were treated for Diverticulitis. The emergency medical care you received today was directed at your acute symptoms. If you were prescribed any medication, please fill it and take as directed. It may take several days for your symptoms to resolve. Return to the Emergency Department if your symptoms worsen, do not improve, or if you have any other problems. Please contact your doctor or call one of the physicians/clinics you have been referred to that are listed on the Patient Visit Information form that is included in your discharge packet. Bring any paperwork you were given at discharge with you along with any medications you are taking to your follow up visit. Our treatment cannot replace ongoing medical care by a primary care provider outside of the emergency department. Thank you for allowing the [facility] team to be part of your care today. If you had an X-Ray or CT scan: A Radiologist will review the ED reading if any change in treatment is needed we will contact you. If you had a blood, urine, or wound culture: It will take several days for the results, if any change in treatment is needed we will contact you. If you had an STI test: It will take 48 hours for the results. Please call after 1 week if you have not heard back. Prescriptions: Ciprofloxacin [Cipro] 500 mg PO Q12 #28 tab Metronidazole [Flagyl] 500 mg PO TID #42 tablet Referrals: Froy Avery MD [Staff Provider] - Follow up with primary Non [facility] Provider, [Non-Staff] - Follow up with primary Forms: [employer] (Niuean), WORK NOTE
[2018-04-06 08:59] VITALS: BP 132/77; PULSE 78; TEMP 98.5; O2SAT 99
--- NOTE | 2018-04-06 10:20 | CT ---
Date of service: 04/06/2018 PROCEDURE: CT Abdomen and Pelvis with contrast HISTORY: abdominal pain, LLQ COMPARISON: 01/07/2018. TECHNIQUE: Contrast dose: 100 mL Omnipaque 350 Radiation dose: Total exam DLP = 894.33 mGy-cm. This CT exam was performed using one or more of the following dose reduction techniques: Automated exposure control, adjustment of the mA and/or kV according to patient size, and/or use of iterative reconstruction technique. FINDINGS: LOWER THORAX: The lungs are clear. LIVER: Normal in size with homogeneous enhancement. No gross lesion or ductal dilatation. GALLBLADDER AND BILE DUCTS: Partially contracted. No calcified gallstones. PANCREAS: Normal in size with homogeneous enhancement. No gross lesion or ductal dilatation. SPLEEN: Normal in size with homogeneous enhancement. ADRENALS: No discrete nodule. KIDNEYS AND URETERS: Normal in size with homogeneous enhancement. No hydronephrosis. No solid mass. VASCULATURE: No aortic aneurysm. BOWEL: There is fluid in the stomach and fluid-filled mildly dilated small bowel loops with mucosal enhancement. There is moderate amount of stool in the ascending and transverse colon. There is mild segmental mural thickening in the left hemicolon. There is also scattered left colonic diverticulosis. There is segmental severe mural thickening in the distal descending and proximal sigmoid colon with significant pericolonic inflammatory changes. No evidence for micro perforation or abscess. APPENDIX: Normal appendix. PERITONEUM: No free fluid. No free air. LYMPH NODES: No enlarged lymph nodes. BLADDER: Normal appearance. REPRODUCTIVE: Unremarkable. BONES: No acute fracture. OTHER FINDINGS: None. IMPRESSION: Segmental acute diverticulitis involving the left distal descending and proximal sigmoid colon. No micro perforation or abscess. Fluid in the small bowel loops and stomach could represent nonspecific enteritis. A preliminary report was provided by [facility].
--- NOTE | 2018-04-06 14:29 | CARD ---
APPROVED REPORT Date of service: 04/06/2018 EKG Measurement Heart [id number] ID [id number] <Conclusion> Normal sinus rhythm Right bundle branch block Inferior infarct, age undetermined Anterolateral infarct, age undetermined Abnormal ECG
== END 2018-04-06 08:58 | disposition home or self-care (01) ==
LOC: ED 05:15
DX: K57.92 Diverticulitis of intestine, part unspecified, without perforation or abscess without bleeding (principal); I10 Essential (primary) hypertension
CPT/HCPCS: 74177; 80053; 81003; 82803; 82948; 83690; 84443; 84484; 85025; 93005; 99284; J7040; Q9967

== ENCOUNTER 2018-04-07 20:08 | Inpatient (IN) | payer MEDICARE, BC ==
--- NOTE | 2018-04-07 20:40 | ED PDOC ---
Arrival/HPI - General Chief Complaint: Weakness/Neurological Deficit Time Seen by Provider: 04/07/18 20:12 Historian: Patient - History of Present Illness Narrative History of Present Illness (Text): 04/07/18 20:37 72 year old female, with past medical history of hypertension and anxiety, presents to the Emergency department complaining of generalized weakness since yesterday. Patient states she was recently diagnosed with diverticulitis yesterday and has not been feeling well since then. Patent informs generalized weakness associated with poor appetite and mild lower abdominal discomfort. Patient was prescribed Cipro and Flagil with no improvement to symptoms. Patient denies any fevers, chills, headache, dizziness, chest pain, shortness of breath, dyspnea on exertion, cough, nausea, vomiting, diarrhea, back pain, neck pain, or any other complaints. Patient presents to the Emergency department for medical evaluation. Time/Duration: 24 hours Symptom Onset: Gradual Symptom Course: Unchanged Quality: Aching Activities at Onset: Light Context: Home Past Medical History - Provider Review Nursing Documentation Reviewed: Yes - Infectious Disease Hx of Infectious Diseases: None - Cardiac Hx Cardiac Disorders: Yes Hx Hypertension: Yes - Pulmonary Hx Respiratory Disorders: No - Neurological Hx Neurological Disorder: Yes Other/Comment: "nerve issues" - HEENT Hx HEENT Disorder: No - Renal Hx Renal Disorder: No - Endocrine/Metabolic Hx Endocrine Disorders: No - Hematological/Oncological Hx Blood Disorders: No - Integumentary Hx Dermatological Disorder: No - Musculoskeletal/Rheumatological Hx Musculoskeletal Disorders: No - Gastrointestinal Hx Gastrointestinal Disorders: No - Genitourinary/Gynecological Hx Genitourinary Disorders: No - Psychiatric Hx Psychophysiologic Disorder: Yes Hx Depression: Yes Hx Substance Use: No Family/Social History - Physician Review Nursing Documentation Reviewed: Yes Family/Social History: No Known Family HX Smoking Status: Never Smoked Hx Alcohol Use: No Hx Substance Use: No Allergies/Home Meds Allergies/Adverse Reactions: Allergies Penicillins Allergy (Verified 04/07/18 20:22) ANAPHYLAXIS lemon Adverse Reaction (Verified 04/07/18 20:22) RASH Home Medications: Home Meds Medication Instructions Recorded Confirmed Lisinopril [Zestril] 20 mg PO DAILY 10/16/17 04/07/18 Propranolol [Inderal] 10 mg PO DAILY 10/16/17 04/07/18 chlorproMAZINE [Thorazine] 1 tab PO HS 03/18/18 04/07/18 Review of Systems - Physician Review All systems were reviewed & negative as marked: Yes - Review of Systems Constitutional: absent: Fevers Respiratory: absent: SOB, Cough Cardiovascular: absent: Chest Pain, ROMEO Gastrointestinal: Abdominal Pain, Appetite Changes. absent: Diarrhea, Nausea, Vomiting Musculoskeletal: absent: Back Pain, Neck Pain Neurological: absent: Headache, Dizziness Physical Exam Vital Signs Reviewed: Yes Blood Pressure: Normal Pulse: Regular Respiratory Rate: Normal Appearance: Positive for: Well-Appearing, Non-Toxic, Comfortable Pain Distress: None Mental Status: Positive for: Alert and Oriented X 3 - Systems Exam Head: Present: Atraumatic, Normocephalic Pupils: Present: PERRL Extroacular Muscles: Present: EOMI Conjunctiva: Present: Normal Respiratory/Chest: Present: Clear to Auscultation, Good Air Exchange. No: Respiratory Distress, Accessory Muscle Use Cardiovascular: Present: Regular Rate and Rhythm, Normal S1, S2. No: Murmurs Abdomen: Present: Tenderness (left lower quadrant abdominal tenderness). No: Distention, Peritoneal Signs Back: Present: Normal Inspection Upper Extremity: Present: Normal Inspection. No: Cyanosis, Edema Lower Extremity: Present: Normal Inspection. No: Edema Neurological: Present: GCS=15, CN II-XII Intact, Speech Normal, Motor Func Grossly Intact, Normal Sensory Function, Normal Cerebellar Funct Skin: Present: Warm, Dry, Normal Color. No: Rashes Psychiatric: Present: Alert, Oriented x 3, Normal Insight, Normal Concentration Medical Decision Making ED Course and Treatment: 04/07/18 20:42 Impression: 72 year old female presents to the Emergency department for generalized weakness associated with poor appetite and lower abdominal pain. Plan: -- EKG -- Labs -- Labs -- Urinalysis -- Reassess and disposition Prior Visits: Notes and results from previous visits were reviewed. Progress Notes: 04/07/18 20:42 EKG: Ordered, reviewed, and independently interpreted the EKG. Rate : 101 BPM Rhythm : Sinus Tachycardia Interpretation : RBBB, non-specific ST/T wave changes. 04/07/18 22:[address] Wright, who is aware and agrees with plan. Accepts pt in to his service. Pt will go to [facility] observation for diverticulitis. Recommends pt be placed on Azactam and Flagyl IV. Requests Dr. Tay on consult. vice president of communications paged. 04/07/18 22:40 Case discussed with medical laboratory technologist water resource consultant, who is aware and agrees with plan. - Lab Interpretations Lab Results: 04/07/18 21:28 04/07/18 21:28 Lab Results 04/07/18 21:28: WBC 9.4, RBC 3.12 L, Hgb 9.0 L, Hct 27.1 L, MCV 86.9, MCH 28.8, MCHC 33.2, RDW 14.3, Plt Count 229, MPV 9.5 04/07/18 21:28: Sodium 135, Potassium 4.3, Chloride 98, Carbon Dioxide 25, Anion Gap 16, BUN 33 H, Creatinine 1.4 H, Est GFR ( Amer) 45, Est GFR ( Non-Af Amer) 37, Random Glucose 145 H, Calcium 8.6, Total Bilirubin 0.3, AST 37 H, ALT 24, Alkaline Phosphatase 74, Total Protein 6.9, Albumin 3.7, Globulin 3.2 , Albumin/Globulin Ratio 1.2, Lipase 57 04/07/18 20:26: POC Glucose (mg/dL) 174 H I have reviewed the lab results: Yes - EKG Interpretation Interpreted by ED Physician: Yes Type: 12 lead EKG - Medication Orders Current Medication Orders: Aztreonam (Azactam 1 Gm) 100 mls @ 100 mls/hr IV STAT STA PRN Reason: Protocol Stop: 04/07/18 23:39 Metronidazole (Flagyl) 500 mg in 100 mls @ 100 mls/hr IVPB STAT STA PRN Reason: Protocol Stop: 04/07/18 23:40 - Scribe Statement The provider has reviewed the documentation as recorded by the Scribe Marti Moore. All medical record entries made by the Scribe were at my direction and personally dictated by me. I have reviewed the chart and agree that the record accurately reflects my personal performance of the history, physical exam, medical decision making, and the department course for this patient. I have also personally directed, reviewed, and agree with the discharge instructions and disposition. Disposition/Present on Arrival - Present on Arrival Any Indicators Present on Arrival: No History of DVT/PE: No History of Uncontrolled Diabetes: No Urinary Catheter: No History of Decub. Ulcer: No History Surgical Site Infection Following: None - Disposition Have Diagnosis and Disposition been Completed?: Yes Diagnosis: Diverticulitis Disposition: HOSPITALIZED Disposition Time: 22:44 Condition: STABLE Referrals: Lisa Bolton, [Primary Care Provider] - Follow up with primary Forms: [employer] (Moroccan)
[2018-04-07 21:48] LABS: MEAN CELL VOLUME 86.9 fl (80.0-105.0); MEAN CORPUSCULAR HEMOGLOBIN 28.8 pg (25.0-35.0); MEAN CORPUSCULAR HGB CONC 33.2 g/dl (31.0-37.0); MEAN PLATELET VOLUME 9.5 fl (7.0-11.0); RBC 3.12 10^6/uL (3.5-6.1); RED CELL DISTRIBUTION WIDTH 14.3 % (11.5-14.5); WHITE BLOOD COUNT 9.4 10^3/ul (4.5-11.0)
[2018-04-07 21:49] LABS: ALB/GLOB RATIO 1.2 (1.1-1.8); ALBUMIN 3.7 g/dL (3.0-4.8); CALCIUM 8.6 mg/dL (8.4-10.5)
[2018-04-07] MEDS ORDERED: Aztreonam 1 Gm in NS 100mL 100 ML IV STA (22:40)
[2018-04-07] MEDS ORDERED: metroNIDAZOLE IV 500 mg/100 ml 500 MG/100 ML BAG IVPB STA (22:41)
[2018-04-07] MEDS ORDERED: Sodium Chloride 0.9% 1,000 ML IV STA (22:42)
[2018-04-07] MEDS ORDERED: HYDROmorphone 0.5 mg/0.5 ml ISec IVP PRN (23:06)
[2018-04-07 23:38] LABS: URINE BILIRUBIN NEGATIVE (NEGATIVE); URINE BLOOD NEGATIVE (NEGATIVE); URINE GLUCOSE (UA) NEGATIVE (NEGATIVE); URINE LEUKOCYTE ESTERASE SMALL Leu/uL (NEGATIVE); URINE PROTEIN NEGATIVE mg/dL (<30 mg/dL); URINE UROBILINOGEN 0.2 E.U./dL (<1 E.U./dL)
[2018-04-07 23:39] LABS: HDL CHOLESTEROL 42 mg/dL (29-60)
[2018-04-07 23:42] LABS: URINE APPEARANCE SL CLOUDY (CLEAR); URINE COLOR YELLOW (YELLOW)
[2018-04-07 23:49] LABS: IRON 25 ug/dL (45-180)
[2018-04-07 23:50] LABS: LDL CHOLESTEROL 56 mg/dL (0-129)
[2018-04-07] MEDS: Lactated Ringer's 1,000 ML IV SCH (23:54)
[2018-04-07 23:59] LABS: URINE RBC NEGATIVE /hpf (0-2)
[2018-04-07 23:59] LABS: % IRON SATURATION 9 % (20-55); TOTAL IRON BINDING CAPACITY 274 ug/dL (265-497)
[2018-04-08] LABS: URINE BACTERIA FEW (NEG)
--- NOTE | 2018-04-08 00:05 | CP.PCM.HP ---
History of Present Illness - History of Present Illness History of Present Illness: PGY-1 History and Physical [address]. Wright's Service Patient is a 72 yo female with PMH HTN and schizophrenia comes to hospital for evaluation of generalized weakness and noticing blood in urine. Patient states that today she was praying when all of a sudden she became frozen to the grown and her extremities stretched similar to Reyes Squires on the cross. At this time patient states that Reyes Squires told her to go to the Emergency room as something was wrong. Patient was in [facility] (04/07) and discharged with oral antibiotics for diagnosis of diverticulitis. Patient states she was having sharp , crampy, achy abdominal pain yesterday located in the RLQ and LLQ, non radiating, 5/10 on pain scale. Patient states that today after taking her antibiotics yesterday she was no longer having the abdominal pain but noticed that her urine was orange tinged and attributed that to blood. Patient states she has never noticed blood in the urine in the past. Patient states she has chronic constipation for which she takes a laxative (cannot recall which one- says its a chocolate laxative). Patient states she took the laxative yesterday and had a bowel movement with no melena or blood noted in the stool. Patient states she is having weakness, hematuria x1, and leg swelling. Patient denies fever, chills, abdominal pain, palpitations, lightheadedness, dizziness, diarrhea, increased urinary frequency, dysuria, chest pain, sob, n/v. PMH- HTN, schizophrenia PSH- Denies FH- Denies Meds- Chloropromazine 100mg po HS, Propanolol 10mg po daily, lisinopril 20mg po daily, flagyl 500mg po tid, ciprofloxacin 500mg po q12h Allergies: PCN (flushing? , body turns red); jazmin (rash) Social: Denies tobacco, etoh, drug use. Lives home alone. Not employed; disability PMD: Dr. Uribe Code: Full Code Review of Systems Pertinent Positives: swelling of legs, hematuria, weakness, chronic constipation Pertinent Negatives: fevers, chills, chest pain, sob, n/v, diarrhea, lightheadedness, dizziness, dysuria, melena, hematochezia, abdominal pain Present on Admission - Present on Admission Any Indicators Present on Admission: No Review of Systems - Constitutional Constitutional: Fatigue. absent: Chills, Fever, Headache - EENT Eyes: absent: Blurred Vision, Change in Vision - Cardiovascular Cardiovascular: Leg Edema. absent: Chest Pain, Chest Pain at Rest, Diaphoresis , Dyspnea, Dyspnea on Exertion, Radiating Pain, Rapid Heart Rate - Respiratory Respiratory: absent: Cough, Dyspnea, Hemoptysis, Dyspnea on Exertion - Gastrointestinal Gastrointestinal: absent: Abdominal Pain, Change in Bowel Habits, Diarrhea, Hematochezia, Nausea, Vomiting - Genitourinary Genitourinary: absent: Change in Urinary Stream, Difficulty Urinating, Dysuria, Hematuria - Neurological Neurological: Weakness. absent: Dizziness, Headaches - Psychiatric Psychiatric: Difficulty Concentrating, Hallucinations Past Patient History - Infectious Disease Hx of Infectious Diseases: None - Past Social History Smoking Status: Never Smoked - CARDIAC Hx Cardiac Disorders: Yes Hx Hypertension: Yes - PULMONARY Hx Respiratory Disorders: No - NEUROLOGICAL Hx Neurological Disorder: Yes Other/Comment: "nerve issues" - HEENT Hx HEENT Problems: No - RENAL Hx Chronic Kidney Disease: No - ENDOCRINE/METABOLIC Hx Endocrine Disorders: No - HEMATOLOGICAL/ONCOLOGICAL Hx Blood Disorders: No - INTEGUMENTARY Hx Dermatological Problems: No - MUSCULOSKELETAL/RHEUMATOLOGICAL Hx Musculoskeletal Disorders: No - GASTROINTESTINAL Hx Gastrointestinal Disorders: No - GENITOURINARY/GYNECOLOGICAL Hx Genitourinary Disorders: No - PSYCHIATRIC Hx Psychophysiologic Disorder: Yes Hx Depression: Yes Hx Substance Use: No - SURGICAL HISTORY Hx Surgeries: No Meds Allergies/Adverse Reactions: Allergies Allergy/AdvReac Type Severity Reaction Status Date / Time Penicillins Allergy ANAPHYLAXIS Verified 04/07/18 20:22 lemon AdvReac RASH Verified 04/07/18 20:22 Physical Exam - Constitutional Appears: Non-toxic, No Acute Distress - Head Exam Head Exam: NORMAL INSPECTION, NORMOCEPHALIC - Eye Exam Eye Exam: EOMI, Normal appearance. absent: Nystagmus, Scleral icterus - ENT Exam ENT Exam: Mucous Membranes Moist, Normal Exam - Respiratory Exam Respiratory Exam: Clear to Auscultation Bilateral, NORMAL BREATHING PATTERN. absent: Rales, Rhonchi, Wheezes - Cardiovascular Exam Cardiovascular Exam: REGULAR RHYTHM, +S1, +S2 - GI/Abdominal Exam GI & Abdominal Exam: Normal Bowel Sounds, Soft. absent: Distended, Firm, Guarding, Tenderness - Extremities Exam Extremities exam: Positive for: normal inspection, pedal edema. Negative for: calf tenderness - Back Exam Back exam: NORMAL INSPECTION. absent: CVA tenderness (L), CVA tenderness (R) - Neurological Exam Neurological exam: Alert, Oriented x3 - Psychiatric Exam Psychiatric exam: Normal Affect, Normal Mood Additional comments: possible hallucinations- states that Reyes Squires speaks to her - Skin Skin Exam: Intact, Normal Color Results - Labs Result Diagrams: 04/07/18 21:28 04/07/18 21:28 Labs: Laboratory Results - last 24 hr 04/07/18 04/07/18 04/07/18 22:51 23:00 23:00 Lactic Acid < 0.5 L Iron 25 L TIBC 274 % Saturation 9 L Urine Color Yellow Urine Appearance Sl cloudy Urine pH 6.0 Ur Specific [place] <= 1.005 Urine Protein Negative Urine Glucose (UA) Negative Urine Ketones Negative Urine Blood Negative Urine Nitrate Negative Urine Bilirubin Negative Urine Urobilinogen 0.2 Ur Leukocyte Esterase Small H Urine RBC Negative Urine WBC 1 - 3 Ur Epithelial Cells 3 - 4 Urine Bacteria Few Assessment & Plan - Assessment and Plan (Free Text) Assessment: Acute Diverticulitis 04/07 CT abdomen/pelvis: segmental acute diverticulitis involving the left distal descending and proximal sigmoid colon. No micro perforation or abscess GI consult: Dr. Tay- recommendations appreciated Blood Cultures pending Clear liquid diet; Lactated Ringers @125mls/hr q8h Dilaudid 0.5mg IVP q4h prn; Tylenol 650mg po q6 prn; Colace 100mg po tid eber Metronidazole 500mg @100ml/shr IVPB q8 eber; Aztreonam 1gm IVPB q8 Acute Kidney Injury on CKD Stage 3 Cr- 1.4 (04/07 Cr 1.1) Likely pre-renal etiology with dehydration; orange tinged urine Lactated Ringers @125mls/hr q8h Repeat CMP in AM Can consider uosm, urine na studies to confirm prerenal component Anemia Hgb- 9.0 Repeat CBC in AM 04/07 UA: negative for blood, negative for nitrate, leukocyte esterase small, urine rbc negative FOBT negative Retic Count- 0.92; MCV 86.9; Iron 25 (low); Ferritin pending; TIBC 274 (normal) ; CK pending Folate; Vit 12 studies pending EPO lvls pending HTN Normotensive Held Home Meds- Lisinopril 20mg po once daily, Propanolol 10mg po once daily May restart tomorrow if blood pressures elevated Leg Swelling B/l venous dopplers pending Hx of Constipation Miralax 17gm po bid Hx of Schizophrenia Psych Consulted- Dr. Moscoso- recommendations appreciated Held Home Meds- Chlorpromazine 100 mg po HS PPX DVT ppx: heparin 5000 units sc q8h eber GI ppx: Protonix 40mg IVP q12 eber Nausea: Zofran 4mg IVP q4h PRN
[2018-04-08 02:23] VITALS: BMI 27.4
[2018-04-08] MEDS: metroNIDAZOLE IV 500 mg/100 ml 500 MG/100 ML BAG IVPB SCH ×3 (05:01→21:33)
[2018-04-08] MEDS: Aztreonam 1 Gm in NS 100mL 100 ML IVPB SCH ×3 (06:00→22:42)
[2018-04-08 07:50] LABS: BASO # 0.01 K/mm3 (0.0-2.0); BASO % 0.1 % (0.0-3.0); EOS # 0.2 (0.0-0.7); EOS % 2.7 % (1.5-5.0); GRAN # 5.51 (1.4-6.5); GRAN % 68.8 % (50.0-68.0); HEMOGLOBIN 9.8 g/dL (12.0-16.0); LYMPH # 1.8 (1.2-3.4); LYMPH % 22.5 % (22.0-35.0); MEAN CELL VOLUME 86.8 fl (80.0-105.0); MEAN CORPUSCULAR HEMOGLOBIN 28.7 pg (25.0-35.0); MEAN PLATELET VOLUME 9.4 fl (7.0-11.0); MONO # 0.5 (0.1-0.6); MONO % 5.9 % (1.0-6.0); RBC 3.42 10^6/uL (3.5-6.1); RED CELL DISTRIBUTION WIDTH 14.1 % (11.5-14.5)
[2018-04-08 08:08] LABS: ALB/GLOB RATIO 1.2 (1.1-1.8); ALBUMIN 3.9 g/dL (3.0-4.8); BILIRUBIN,DIRECT 0.2 mg/dL (0.0-0.4)
[2018-04-08] MEDS ORDERED: Propranolol 5 mg Tab PO SCH (10:00)
[2018-04-08] MEDS: POLYETHYLENE GLYCOL 3350 17 GM/Dose PACKET PO SCH (10:58)
--- NOTE | 2018-04-08 11:23 | CARD ---
APPROVED REPORT Date of service: 04/07/2018 EKG Measurement Heart [id number] ID [id number] <Conclusion> Sinus tachycardia Right bundle branch block Abnormal ECG
--- NOTE | 2018-04-08 13:47 | PN ---
Copied To: Fitz Wright MD Attending MD: Fitz Wright MD DATE: 04/08/2018 SUBJECTIVE: The patient is now seen in room 372 bed 2. The patient is lying in the bed. The patient is still complaining of some left lower quadrant pain. Overnight nurse's notes were reviewed. The patient did not offer many complaints to the nurses. REVIEW OF SYSTEMS: The 13-system review was done, pertinent positive and negative dictated above. OBJECTIVE: VITAL SIGNS: In the last 24 hours, T-max 98.4; heart rate 77, 84, 80, 82; blood pressure 130/78, 148/79; respirations 20; O2 sat 99%. HEENT: Head examination normocephalic, atraumatic. HEENT examination shows pinkish pale conjunctivae. Anicteric sclerae. Dry oral mucosa. NECK: No neck rigidity. CHEST: Kyphosis. LUNGS: Shows no rales, crackles or wheezing. CARDIOVASCULAR: S1, S2, regular rhythm. Questionable soft systolic murmur, left sternal border, right second intercostal space, left second intercostal space. ABDOMEN: Soft and protuberant. Positive bowel sounds. Positive left lower quadrant deep tenderness. Questionable rebound tenderness. No hepatosplenomegaly palpated. GENITALIA: Female. RECTAL: Examination is deferred. EXTREMITIES: Show no pitting edema, no calf tenderness, no Homans' sign. NEUROLOGIC: The patient is alert, awake, responsive, is able to move upper and lower extremity without assistance. Gait examination is not tested. VASCULAR: Palpable pulses. Cranial nerves II through XII intact. Positive varicose veins of the lower extremity noted and decreased swelling of the lower extremity noted. Gait examination is not tested. MUSCULOSKELETAL: Examination shows a body mass index of 27.4. DIAGNOSTICS: 04/08/2018, WBC 8, hemoglobin/hematocrit 9.8 and 29.7, platelets 233. Sodium 142, potassium 4.3, chloride 104, CO2 27, anion gap 16. BUN 24, down from 33; creatinine 1.2, down from 1.4. GFR 53, glucose 116, lactic acid less than 0.5, calcium 9, phosphorus 3.7, magnesium 2.2, iron 25, saturation 9. LFTs are normal. IMPRESSION AND PLAN: 1. Symptomatic left descending colon and sigmoid colon diverticulitis with symptoms of weakness. 2. Paranoid schizophrenia with delusions. 3. Hypertension. 4. Mild tachycardia. 5. Normocytic anemia with granulocytosis. 6. Acute kidney injury (resolved). 7. Hyperglycemia. 8. Iron-deficiency anemia. 9. Pyuria and bacteriuria. 10. Partially contracted gallbladder. 11. Gastric fluid. 12. Mildly dilated fluid filled small bowel with mucosal enhancement. 13. Fecal stasis in ascending and transverse colon. 14. Segmental mural thickening of the left hemicolon and left colonic diverticulosis. 15. Segmental severe left colonic diverticulosis. 16. Segmental severe mural thickening of the distal descending and proximal sigmoid colon with significant pericolonic inflammation. 17. Right bundle-branch block. 18. Sinus tachycardia. 19 History of constipation. 20. History of bipolar disorder. 21. History of paranoid schizophrenia. At present, the patient is to be continued on the treatment plan as ordered. The patient currently has been ordered repeat labs. The patient has been ordered blood and urine cultures. Consultation with Gastroenterology and Psychiatry, evaluation pending for both Psychiatry and Gastroenterology. Procalcitonin level pending. Current medications are Azactam 1 g IV every 8 hours, Colace 100 mg three times a day, Dilaudid 0.5 IV every 4 hours p.r.n., Flagyl 500 IV every 8 hours, heparin 5000 subcu every 8 hours for DVT prophylaxis, Inderal 10 mg daily, iron 200 mg IV daily, lactated Ringer's 125 mL/hour, MiraLax 17 g twice a day, Protonix 40 mg IV every 12 hours. The patient is resumed on the chlorpromazine 100 mg at bedtime, Tylenol p.r.n., Zofran 4 IV every 4 hours p.r.n. Chest x-ray PA and lateral ordered. Venous Doppler of the lower extremities, preliminary results negative for DVT. The patient is on liquid diet which will be advanced depending upon the Gastroenterology evaluation of the patient's clinical condition. The patient has been ordered out of bed, CAMELIA stockings, SCDs, physical therapy, occupational therapy, ambulation therapy. Gait training ordered. Stool for occult blood ordered. At present, the patient is to be continued on above therapeutic intervention. The patient's further management will be dependent upon the patient's clinical condition, hemodynamic status and patient response to therapeutic intervention, as per the patient's diagnostic test results and as per recommendation by all the physicians involved in the care of the patient. Dictated and electronically signed, not read. Fitz Wright MD
--- NOTE | 2018-04-08 14:43 | RAD ---
Date of service: 04/08/2018 HISTORY: DIVERTICULITTIS COMPARISON: 01/20/2018 TECHNIQUE: Chest PA and lateral FINDINGS: LUNGS: No active pulmonary disease. PLEURA: No significant pleural effusion identified. No pneumothorax apparent. CARDIOVASCULAR: Normal. OSSEOUS STRUCTURES: No significant abnormalities. VISUALIZED UPPER ABDOMEN: Normal. OTHER FINDINGS: None. IMPRESSION: No active disease.
[2018-04-08] MEDS: Lactated Ringer's 1,000 ML IV SCH (15:30)
[2018-04-08 16:04] LABS: FERRITIN 97.6 ng/mL
[2018-04-08 16:34] LABS: FOLATE > 20.0 ng/mL
--- NOTE | 2018-04-08 17:31 | US ---
HISTORY: Leg pain and swelling. Evaluate for DVT PHYSICIAN(S): Richard Shelton MD. TECHNIQUE: Duplex sonography and color-flow Doppler with graded compression were used to evaluate the deep venous systems of both lower extremities. FINDINGS: The visualized deep venous systems of both lower extremities are sonographically normal and compressible. Normal wave forms and augmentation are seen. There is no sonographic evidence for deep venous thrombosis in the visualized segments of both lower extremities. IMPRESSION: No sonographic evidence for deep venous thrombosis in the visualized segments of both lower extremities.
[2018-04-08 19:54] LABS: BARBITURATES, UR NEGATIVE (NEGATIVE); BENZODIAZEPINES, UR NEGATIVE (NEGATIVE); OPIATES, UR NEGATIVE (NEGATIVE); PHENCYCLIDINE, UR NEGATIVE (NEGATIVE)
[2018-04-08 20:02] LABS: CREATININE,RANDOM URINE 30 mg/dL
--- NOTE | 2018-04-08 21:14 | HP ---
Copied To: Fitz Wright MD Attending MD: Fitz Wright MD HISTORY OF PRESENT ILLNESS: The patient is a 72-year-old female came to the Emergency Room by [facility] complaining of weakness according to triage note, but according to the medical insurance collector and the ER physician evaluation, the patient states the chief complaint of generalized weakness and she was seen in the Emergency Room on 04/06/2018 diagnosed with diverticulosis and diverticulitis with a CAT scan done. The patient was given p.o. antibiotic, Cipro and Flagyl, which the patient did not have much response, complained of generalized weakness, poor appetite and increasing abdominal pain and discomfort. According to the resident's evaluation note, the patient stated that the patient had severe weakness, blood in the urine. The patient stated that she had a sudden feeling of body freezing of her extremities and stretching and feeling like the patient was put on the cross like Reyes Shaw. The patient also reports that the [employer] told her to go to the Emergency Room as something was wrong.. The patient also complained of leg swelling. CODE STATUS: Full code. LIVING WILL AND ADVANCE DIRECTIVE: None. ALLERGIES: PENICILLIN AND LEMON. Height is 5 feet 6 inches. Weight is 170. BMI is 27.4. HOME MEDICATIONS: Chlorpromazine 100 mg at bedtime, Inderal 10 mg daily, Naprosyn 500 twice a day, Flagyl 500 three times a day, Zestril 20 mg daily, Cipro 500 every 12. MENSTRUAL HISTORY: Postmenopausal. SOCIAL HISTORY: The patient denies smoking. Denies alcohol. Denies drug use. Denies communicable transmissible disease. PAST SURGICAL HISTORY: Not available. FAMILY HISTORY: Not available. PAST MEDICAL AND SURGICAL HISTORY: History of hypertension, history of diverticulosis and diverticulitis, history of schizophrenia, history of possible bipolar disorder, history of depression and anxiety. The patient's past medical history is also significant for hypertension, history of anemia. The patient's past medical history is significant for microscopic hematuria and pyuria. The patient's past medical history is significant for history of left shoulder calcific tendinitis. The past medical history is significant for degenerative joint disease of the lumbar spine, history of obesity, history of schizophrenia, history of questionable bipolar disorder, history of paranoid schizophrenia, history of chronic S5 oblique fracture, history of questionable poor compliance, history of osteoarthritis of the hand. Past medical history is significant for right bundle-branch block. The patient's past medical history is significant for history of hypertension, history of schizoaffective disorder, history of depression, history of anxiety. The patient's past medical history is significant for history of delusional disorder. The patient is seen in room 372, bed 2. The patient is lying in the bed. PHYSICAL EXAMINATION: VITAL SIGNS: T-max is 98.4, pulse is 79, 82, blood pressure is 121/60, O2 sat is 96-97%. HEENT: Head: Normocephalic, atraumatic. HEENT examination shows pinkish pale conjunctivae, anicteric sclerae, dry oral mucosa. NECK: No neck rigidity. CHEST: Kyphosis. LUNGS: Shows no rales, crackles or wheezing. CARDIOVASCULAR: S1 and S2. Regular rhythm. Questionable soft systolic murmur, left sternal border, right second intercostal space, left second intercostal space. ABDOMEN: Soft. Positive bowel sounds. Protuberant abdomen. Obese abdomen. No hepatosplenomegaly noted. Positive left lower quadrant tenderness noted. Questionable guarding noted. Mild rebound tenderness noted in the left lower quadrant in suprapubic area. GENITALIA: Female. RECTAL: Deferred. EXTREMITIES: Shows trace swelling of the lower extremity. Positive varicose veins. Shows no calf tenderness. MUSCULOSKELETAL: Shows a body mass index of 27.4. NEUROLOGICAL: The patient is alert, awake, responsive. She is able to move upper and lower extremity without assistance. Gait examination is not tested. VASCULAR: Palpable pulses. PSYCHIATRIC: Positive for paranoid delusions. DIAGNOSTICS: On 04/07/2018: WBC 9.4, hemoglobin and hematocrit 9 and 27, platelet 229. Sodium 135, potassium 4.3, chloride 98, CO2 21, anion gap 16, BUN 33, creatinine 1.4, GFR 45, glucose 174, 145, lactic acid is 0.5, AST 37, cholesterol 133, lipase 57. Urine specific gravity less than 1.005, pH 6, small leukocyte esterase, few bacteria. As mentioned, the patient was seen yesterday on 04/06/2018 in the Emergency Room. The patient's CBC shows hemoglobin is hovering around 9.8 and 9. VBG was negative lactic acid.. The patient's chemistry from 04/06/2018 and 04/07/2018 were reviewed. The patient had an abdominal and pelvis CAT scan, the results of which are noted.. The patient had an EKG done, the results of which are noted. The patient was seen in the Emergency Room, physician by Dr. Cabezas and the patient was seen by the medical center director. IMPRESSION: 1. Acute distal descending and proximal sigmoid colon diverticulitis with segmental severe mural thickening and pericolonic inflammatory changes. 2. Gastric fluid with full filled dilated small bowel loops with mucosal enhancement. 3. Fecal stasis and ascending and transverse colon. 4. Diverticulitis. 5. Acute diverticulitis. 6. Acute kidney injury with underlying chronic kidney disease stage 3. 7. Anemia. 8. Hypertension. 9. Fecal stasis and constipation. 10. History of paranoid schizophrenia. 11. History of bipolar disorder. 12. Right bundle-branch block with age indeterminate anterolateral and inferior infarct as per EKG. 13. Normocytic anemia. 14. Hyperglycemia. 15. Pyuria and bacteriuria. 16. Questionable bilateral lower extremity venous stasis with varicose veins of the lower extremity. 17. Fatigue, tiredness and weakness, etiology undetermined. 18. Complains of subjective hematuria with negative urinalysis. 19. History of hypertension. PLAN AT THIS TIME: The patient is to be admitted to [facility]. Urine drug screen ordered. Iron studies ordered. Repeat CPK ordered. Repeat CMP, LFT, magnesium, phosphorus drug screen ordered. Repeat CBC ordered. Urine cultures ordered. GI and Psychiatry consultation ordered. The patient is started on Azactam 1 g IV every 8, which was started in the Emergency Room. The patient was started on Colace 100 three times a day, Dilaudid 0.5 IV every 4 p.r.n., Flagyl 500 mg IV every 8, heparin 5000 subcu every 8 for DVT prophylaxis, Inderal 10 mg daily, Ringer lactate 125 mL/hour, MiraLax 17 g twice a day, Protonix 40 mg IV every 12. The patient is resumed on her chlorpromazine 100 mg at bedtime, Tylenol 650 every 6 p.r.n., Zofran 4 mg IV every 4 p.r.n., liquid diet is ordered. The patient has been ordered out of bed, CAMELIA stockings, SCDs, physical therapy, occupational therapy. Stool occult blood ordered. At present, the patient's condition management, treatment plan and all details depended upon the patient's clinical visualization, hemodynamic status and as per the patient's response to therapeutic intervention, as per Gastroenterology and Psychiatry recommendation. All of the above have been discussed and explained to the patient at length and all questions concern answered. Dictated and electronically signed, not read. Fitz Wright MD
--- NOTE | 2018-04-08 22:48 | CON ---
Copied To: Tomas Tay MD Attending MD: Tomas Tay MD DATE: 04/08/2018 GASTROENTEROLOGY CONSULTATION REQUESTING PHYSICIAN: Fitz Wright MD REASON FOR CONSULTATION AND HISTORY OF PRESENT ILLNESS: I have been asked to see this 72-year-old female with a history of hypertension and schizophrenia, who was seen in the hospital emergency room 2 days ago for left lower quadrant abdominal pain. The patient had a CT scan of the abdomen and pelvis at that time, which showed mural thickening with some pericolonic stranding around the proximal sigmoid, distal descending colon. She was treated with oral antibiotics consisting of Cipro and Flagyl. 24 hours later, the patient came back to the hospital for generalized weakness and blood in her urine. The patient states that she was told to come to the emergency room by Reyes Squires. She apparently had auditory hallucinations. She currently denies any abdominal pain, nausea or vomiting. PAST MEDICAL HISTORY: As above. Again, she has a history of hypertension and schizophrenia. SOCIAL HISTORY: She denies cigarette smoking or alcohol abuse. FAMILY HISTORY: Noncontributory. REVIEW OF SYSTEMS: A 14-point review of systems is notable for abdominal pain, hematuria, generalized weakness. PHYSICAL EXAMINATION GENERAL: Well-developed female, lying in bed, in no acute distress. VITAL SIGNS: Reveal temperature of 97.7, blood pressure 130/78, heart rate of 77. HEENT: Reveals sclerae to be white. Conjunctivae pink. NECK: Supple. CHEST: Lungs are clear. HEART: Reveals regular rate and rhythm. ABDOMEN: Obese, soft, nontender. EXTREMITIES: Show no edema. LABORATORY DATA: Reveals white blood cell count 8, hemoglobin 9.8. Chemistries reveal BUN 24, creatinine 1.2, blood sugar 116. CT scan of the abdomen and pelvis performed on the reveal diverticulosis in the left colon with mural thickening of the junction of the sigmoid and descending colon with pericolonic inflammation consistent with diverticulitis. IMPRESSION: The patient has a history of schizophrenia. RECOMMENDATIONS: 1. Continue IV antibiotics. 2. We will advance to a low residue diet. 3. The patient will need an elective colonoscopy in approximately four weeks after the diverticulitis cools down to rule out a colonic neoplasm. NOTE: Her medications at home include Inderal, Naprosyn, Cipro, Flagyl, lisinopril and chlorpromazine. Tomas Tay MD [facility] # [id number]
--- NOTE | 2018-04-09 05:13 | CON ---
Copied To: Mary Moscoso MD Attending MD: Mary Moscoso MD DATE: 04/08/2018 HISTORY OF PRESENT ILLNESS: In short, the patient is 72-year-old female from [facility] and [facility]. The patient has history of schizophrenia, multiple psychiatric admissions in the past. The patient was admitted on the medical site for evaluation of generalized weakness. The patient has multiple medical issues, that is why, the patient was admitted on the medical site. Psych consult was called because the patient is on psychotropic medication chlorpromazine as well as the patient has history of schizophrenia as well as the patient presented to be psychotic and religiously preoccupied. This senior grant writer evaluated the patient today. The patient presented to be alert, somewhat present. The patient has circumstantial and tangential thought process. The patient also presented to be religiously preoccupied, also, was saying about Praise to Reyes Squires. Also, the patient said that she hears God's voices. The patient reported that she has multiple hospitalizations in the past and history [place] The patient said that she sees psychiatrist at [facility], next appointment in 04/19/2018. The patient adamantly denied thoughts of harming herself or others. Denied intent or plan. As per staff, the patient is oddly related, disorganized in her thoughts, also religiously preoccupied, but no aggression, no agitation. This senior grant writer received phone call from the patient's niece, Iza Ayoub, phone number is [phone]. She will have this senior grant writer messaged asking to give a call back because the patient was acting up lately. The patient did not give this senior grant writer permission to talk to nobody. We will consider to call her back as long as the patient is willing to give written consent for collateral information. The patient's vital signs are stable. Temperature 98.4, pulse is 71, blood pressure 150/79, respiration 20, oxygen saturation 99. Medications were reviewed. Tylenol, Thorazine 100 mg at the nighttime. The patient is on Colace, heparin, Dilaudid, , Flagyl, Zofran, MiraLax and Inderal. Labs reviewed. Hemoglobin and hematocrit are 9.8 and 29.7. Chemistry reviewed. BUN as 24, iron 25. Urinalysis, leukocyte esterase small. Microbiology will be followed up. MENTAL STATUS EXAM: The patient appears to be alert, oriented in self, time and place. Mood described as "I feel fine, Thank you Reyes Squires. I wish you also will be praying daily". Affect was constricted. Thought process seems to be circumstantial, tangential and disorganized. Thought content, the patient obviously religiously preoccupied. Denied hearing voices, denied seeing things at the moment of evaluation, but the patient has history of command type hallucinations and God was telling the patient to do certain things. The patient had tendency of following command type hallucinations. Insight and judgment seems to be limited. Impulses are well controlled so far. IMPRESSION: As per history, schizophrenia. PLAN: Thorazine was resumed by medical team. I agree with that. We will order as-needed medication if the patient will give written consent for collateral information for her niece, we will call her back and obtain collateral information at [phone]. Meanwhile, the patient needs to stay on the medical site for clearance and we will advise accordingly. Thorazine as needed will be started. Thank you very much. Mary Moscoso MD
[2018-04-09] MEDS: metroNIDAZOLE IV 500 mg/100 ml 500 MG/100 ML BAG IVPB SCH ×3 (05:25→21:29)
[2018-04-09] MEDS: Lactated Ringer's 1,000 ML IV SCH ×2 (06:38→17:07)
[2018-04-09] MEDS: Aztreonam 1 Gm in NS 100mL 100 ML IVPB SCH (06:39)
[2018-04-09 06:46] LABS: BASO # 0.01 K/mm3 (0.0-2.0); BASO % 0.2 % (0.0-3.0); EOS # 0.3 (0.0-0.7); EOS % 5.1 % (1.5-5.0); GRAN # 3.45 (1.4-6.5); GRAN % 62.6 % (50.0-68.0); HEMOGLOBIN 9.6 g/dL (12.0-16.0); LYMPH # 1.4 (1.2-3.4); LYMPH % 24.7 % (22.0-35.0); MEAN CELL VOLUME 86.8 fl (80.0-105.0); MEAN CORPUSCULAR HEMOGLOBIN 28.2 pg (25.0-35.0); MEAN CORPUSCULAR HGB CONC 32.5 g/dl (31.0-37.0); MEAN PLATELET VOLUME 9.3 fl (7.0-11.0); MONO # 0.4 (0.1-0.6); MONO % 7.4 % (1.0-6.0); RBC 3.4 10^6/uL (3.5-6.1); RED CELL DISTRIBUTION WIDTH 14.1 % (11.5-14.5); WHITE BLOOD COUNT 5.5 10^3/ul (4.5-11.0)
[2018-04-09 06:47] LABS: ALB/GLOB RATIO 1.1 (1.1-1.8); ALBUMIN 3.6 g/dL (3.0-4.8); ALT/SGPT 24 U/L (7-56); AST/SGOT 23 U/L (14-36); BILIRUBIN,DIRECT 0.1 mg/dL (0.0-0.4); BLOOD UREA NITROGEN 16 mg/dL (7-21); CALCIUM 8.8 mg/dL (8.4-10.5); GFR NON-AFRICAN AMERICAN 55
[2018-04-09] MEDS: POLYETHYLENE GLYCOL 3350 17 GM/Dose PACKET PO SCH ×2 (09:14→17:07)
--- NOTE | 2018-04-09 09:37 | CP.PCM.PN ---
Subjective - Date & Time of Evaluation Date of Evaluation: 04/09/18 Time of Evaluation: 09:37 - Subjective Subjective: Diogenes Marroquin PGY2 IM Progress Note for Dr. Wright Patient was seen and examined at bedside. She continues to make statements about Reyes Squires and was praying rosary in the room. Per nurse there were no acute overnight events. The patient has no periods of distress or agitation. Psychiatry team evaluate the patient and recommended continuing Thorazine and medical management of diverticulitis. GI team evaluated the patient, and recommended continuing IV antibiotics and an elective colonoscopy in 4 weeks to rule out any colonic masses. Diet was advanced from liquid diet to low residue/ low fiber diet. The patient denies any chest pain, abdominal pain, nausea/ vomiting/diarrhea/constipation, fever/chills or any focal weakness. Objective - Vital Signs/Intake and Output Vital Signs (last 24 hours): Temp Pulse Resp BP Pulse Ox 97 F L 83 20 148/81 93 L 04/09/18 08:31 04/09/18 08:31 04/09/18 08:31 04/09/18 08:31 04/09/18 08:31 Intake and Output: 04/09/18 04/09/18 06:59 18:59 Intake Total 1660 Balance 1660 - Medications Medications: Current Medications Acetaminophen (Tylenol 325mg Tab) 650 mg PO Q6 PRN PRN Reason: TEMP>=99.5F Acetaminophen (Tylenol 650 Mg Supp) 650 mg RC Q6H PRN PRN Reason: TEMP>=99.5F Chlorpromazine (Thorazine) 100 mg PO HS CARMITA PRN Reason: Protocol Last Admin: 04/08/18 21:32 Dose: 100 mg Docusate Sodium (Colace) 100 mg PO TID CARMITA Last Admin: 04/09/18 09:14 Dose: 100 mg Heparin Sodium (Porcine) (Heparin) 5,000 units SC Q8 CARMITA PRN Reason: Protocol Last Admin: 04/09/18 05:26 Dose: 5,000 units Hydromorphone HCl (Dilaudid) 0.5 mg IVP Q4H PRN PRN Reason: Pain, moderate (4-7) Metronidazole (Flagyl) 500 mg in 100 mls @ 100 mls/hr IVPB Q8 CARMITA PRN Reason: Protocol Last Admin: 04/09/18 05:25 Dose: 100 mls/hr Lactated Ringer's (Lactated Ringer's) 1,000 mls @ 125 mls/hr IV .Q8H [facility] Last Admin: 04/09/18 06:38 Dose: 125 mls/hr Iron Sucrose 200 mg/ Sodium (Chloride) 110 mls @ 110 mls/hr IVPB DAILY [facility] Stop: 04/12/18 10:59 Last Admin: 04/09/18 09:15 Dose: 110 mls/hr Aztreonam (Azactam 1 Gm) 100 mls @ 100 mls/hr IVPB Q8 CARMITA PRN Reason: Protocol Stop: 04/11/18 14:59 Last Admin: 04/09/18 06:39 Dose: 100 mls/hr Ondansetron HCl (Zofran Inj) 4 mg IVP Q4H PRN PRN Reason: Nausea/Vomiting Pantoprazole Sodium (Protonix Inj) 40 mg IVP Q12 [facility] Last Admin: 04/09/18 09:15 Dose: 40 mg Polyethylene Glycol (Miralax) 17 gm PO BID [facility] Last Admin: 04/09/18 09:14 Dose: 17 gm Propranolol HCl (Inderal) 10 mg PO DAILY [facility] Last Admin: 04/09/18 09:14 Dose: 10 mg - Labs Labs: 04/09/18 06:00 04/09/18 06:00 - Constitutional Appears: Well, Non-toxic, No Acute Distress - Head Exam Head Exam: NORMAL INSPECTION - Eye Exam Eye Exam: EOMI, Normal appearance, PERRL - ENT Exam ENT Exam: Mucous Membranes Moist - Neck Exam Neck Exam: Normal Inspection - Respiratory Exam Respiratory Exam: Clear to Ausculation Bilateral, NORMAL BREATHING PATTERN. absent: Rales, Rhonchi, Wheezes, Respiratory Distress - Cardiovascular Exam Cardiovascular Exam: RRR, +S1, +S2. absent: JVD, Murmur - GI/Abdominal Exam GI & Abdominal Exam: Guarding, Soft, Tenderness (diffuse, moderate), Normal Bowel Sounds. absent: Distended, Rigid, Rebound - Extremities Exam Extremities Exam: Full ROM. absent: Pedal Edema - Back Exam Back Exam: NORMAL INSPECTION - Neurological Exam Neurological Exam: Alert, Altered (at baseline), Awake, CN II-XII Intact - Psychiatric Exam Psychiatric exam: Normal Mood - Skin Skin Exam: Normal Color Assessment and Plan - Assessment and Plan (Free Text) Assessment: 72-year-old female with a PMH of HTN and schizophrenia who presented to the ED for generalized weakness, found to have episode of diverticulitis. The patient is on antibiotics, stool softeners and receiving fluids. Diet was advanced by GI to low residue, and Dr. Tay recommends an elective colonoscopy 1 month after discharge. Psychiatry is also following due to patient's history of schizophrenia. Pain is improving and controlled with current regimen. Plan: 1. Diverticulitis - started on Levaquin - cont Flagyl - cont Miralax/colace - Zofran PRN - advanced to low fiber diet - GI is following - recommended due to have colonoscopy 1month after discharge - PT eval pending 2. Hx Schizophrenia - Thorazine HS - Psch consulted, recommend continued medical management - patient is not agitated or aggressive 3. Anemia - Venofer ordered 4. FARIDA - resolved 5. PPX - Heparin/SCDs for DVT ppx - PTX for GI ppx Case was reviewed and discussed with attending, Dr. Adriana Marroquin PGY2
[2018-04-09] MEDS ORDERED: levoFLOXacin 750 mg in D5W 150 ML BAG IVPB SCH (10:30)
[2018-04-09] MEDS: levoFLOXacin 750 mg in D5W 750 MG/150 ML BAG IVPB SCH (11:51)
--- NOTE | 2018-04-09 12:04 | PN ---
Copied To: Fitz Wright MD Attending MD: Fitz Wright MD DATE: 04/09/2018 SUBJECTIVE: The patient is seen lying in bed in room 372, bed 2. The patient appears to be comfortable.. The patient's overnight nurse's notes were reviewed. IV infiltration incidents was noted which was resolved by the nursing with IV sites change and warm compresses applied. The patient's above complaint about the IV sites problem has been resolved. The patient did have a bowel movement. The patient denies any rectal bleeding. Denies any abdominal pain. Denies nausea, denies vomiting, denies diarrhea. PHYSICAL EXAMINATION: VITAL SIGNS: T-max 98.4-97.7, heart rate 71, 66, 83, blood pressure 148/81, 150/79, 132/78, respirations 20, O2 sat 99%. HEAD: Normocephalic, atraumatic. HEENT examination shows pinkish pale conjunctivae. Dry oral mucosa. Anicteric sclerae. No oropharyngeal lesion. No neck rigidity. CHEST: Kyphosis. LUNGS: Shows no rales, crackles or wheezing. CARDIOVASCULAR: S1, S2, regular rhythm. No rales, crackles, wheezing noted. ABDOMEN: Soft. Positive bowel sounds. Very mild left lower quadrant deep tenderness noted. No rebound tenderness noted. GENITALIA: Female. RECTAL: Deferred. EXTREMITIES: Shows no pitting edema, no calf tenderness, no Homans' sign. NEUROLOGIC: The patient is alert, awake, responsive, is able to move upper and lower extremity without assistance. Gait examination is not tested. MUSCULOSKELETAL: Shows a body mass index of 27. DIAGNOSTICS: 04/09/2018: WBC 5.5, hemoglobin/hematocrit 9.6/29.5, platelet 231. Sodium 142, potassium 4.2, chloride 105, CO2 of 26, anion gap 16, BUN is down to 16 from 33. Creatinine is down to 1 from 1.4, glucose 98, calcium 8.8, phosphorus 3.7, magnesium 2. LFTs are within normal limits. Urine drug screen is negative. Blood cultures no growth. Chest x-ray report was negative. EKG was reviewed which shows right bundle-branch block. IMPRESSION AND PLAN: 1. Symptomatic left descending colon, sigmoid colon diverticulosis with symptoms of weakness. 2. Paranoid schizophrenia with preoccupation and delusional. 3. Hypertension. 4. Iron-deficiency normocytic anemia. 5. Acute kidney injury (resolved). 6. Pyuria. 7. Bacteriuria 8. Schizophrenia. PLAN: Plan at this time, the patient is seen by Psychiatry. The patient is seen by Gastroenterology. Recommendations noted and reinforced to the patient in layman's language. All questions concerned answered. The patient has been ordered repeat labs.. Repeat CBC. Blood cultures are negative. Urine culture is still pending. Current consultation, Gastroenterology, Psychiatry. Current medications, Colace 100 mg three times a day, Dilaudid 0.5 mg IV every 4 hours p.r.n., Flagyl 500 IV every 8 hours, heparin 5000 subcu every 8 hours, Inderal 10 mg daily, Venofer 200 mg IV daily, Ringer's lactate 125 mL an hour, Levaquin 750 mg IV daily, MiraLax 17 g twice a day, Protonix 40 IV every 12 hours, chlorpromazine (Thorazine) 100 mg at bedtime, Tylenol p.r.n., Zofran 4 mg IV every 4 hours p.r.n. The patient is started on altered GI hepatic diet by Gastroenterology. The patient has been ordered out of bed, CAMELIA servin, SCDs. Stool for occult blood still pending. The patient was seen by Psychiatry and Gastroenterology. Recommendations noted. The patient was advised outpatient followup with Gastroenterology for elective colonoscopy. The patient was advised to continue outpatient followup with [facility]. The patient was advised outpatient followup in the office after discharge. Dictated and electronically signed, not read. Fitz Wright MD (Delete this signature block when dictator is a preceptor.) cc: MD Laisha (Delete if not dictated.)
--- NOTE | 2018-04-09 13:45 | PN ---
Copied To: Tomas Tay MD Attending MD: Tomas Tay MD DATE: 04/09/2018 SUBJECTIVE: The patient is lying in bed. She is tolerating a low-residue diet. She denies any current abdominal pain. She denies any fevers or chills. PHYSICAL EXAMINATION: VITAL SIGNS: Reveal temperature of 97, blood pressure 148/81, heart rate of 83. HEENT: Reveals sclerae to be white. Conjunctivae pink. NECK: Supple. CHEST: Lungs are clear. HEART: Reveals a regular rate and rhythm. ABDOMEN: Soft, nontender. No mass. EXTREMITIES: Show no edema. LABORATORY DATA: Reveal hemoglobin 9.6, white blood cell count 5.5. Electrolytes are normal. IMPRESSION: 1. Left-sided diverticulitis. 2. Anemia. RECOMMENDATIONS: Continue antibiotics. If the patient continues to improve, she can be discharged home on oral antibiotics for a total 14 days' treatment as well as a low-residue diet. I have instructed the patient that she will need a colonoscopy in approximately 4-6 weeks after the diverticulitis cools down. Tomas Tay MD
--- NOTE | 2018-04-09 21:09 | PN ---
Copied To: Mary Moscoso MD Attending MD: Mary Moscoso MD DATE: 04/09/2018 SUBJECTIVE: The patient was followed up today. The patient presented to be more irritable. First question from the patient was why you wear all black. This senior underwriter was not wearing all black. The patient appears to be mildly irritable and annoyed and this is a deviation from the yesterday's assessment. The patient initially gave permission to this senior underwriter to speak to her niece, Aline Boykin, but when this senior underwriter presented with consent form, the patient refused to sign it and became very agitated. So, this senior underwriter needed to stop the interview. The patient obviously is religiously preoccupied, also annoyed, also presented to be depressed and angry. The patient is not doing well. The patient's niece contacted this senior underwriter by herself. This senior underwriter did not disclose any information, but niece expressed concerns about the patient's well being. The patient was more religiously preoccupied lately. The patient said that she was hearing voices of the God and she needs to fix her niece's sins. The patient was annoyed and irritable and this is acute deviation from the patient's mental status. As per niece collaterals, the patient has long history of mental illness. In 2009, the patient had prolonged hospitalization in [place]. She stayed there for 3 months. The patient also has a history of being admitted to other facilities and as per nimonisha, family raising highest concerns about the patient's safety. Later on, nurse from the medical site contacted this senior underwriter. The patient is very agitated. She refused to be on antibiotics and she wants to leave against medical advice. From this senior underwriter's perspective, this is not safe discharge. Most likely, we will initiate the screening process, but at the same time, the patient is not medically cleared. The patient needs to continue treatment because infection as well as delirium could interfere with the patient's presentation. VITAL SIGNS: This senior underwriter reviewed vital signs. Vital signs seem to be stable. Temperature 97, pulse is 83, blood pressure 148/81, respirations 20, and oxygen saturation is 93. MEDICATIONS: Reviewed. Tylenol, Thorazine 100 mg at the nighttime, Thorazine 50 mg every 6 hours as needed p.r.n. for agitation, Colace 100 mg three times a day, the patient refused heparin, Dilaudid. The patient also is on IV hydration, the patient refused. The patient is on levofloxacin, Flagyl, Zofran, Protonix, MiraLax, and Inderal. LABORATORY DATA: Reviewed. Most recent was from today, leukocyte esterase was positive. Microbiology, gram-positive cocci in the urine. Notes reviewed. MENTAL STATUS EXAMINATION: As this senior underwriter described, the patient appears to be religiously preoccupied. The patient was fixated on her beliefs, also was showing this senior underwriter rosaalo. The patient had intense eye contact, was irritable and angry, but reported that she feels okay. Affect was constricted. Thought process: Circumstantial, tangential. Thought content: The patient obviously is psychotic. Insight and judgment seem to be limited. Impulses are unpredictable. IMPRESSION: Long history of schizophrenia, but at present moment, the patient seems to be decompensating. This senior underwriter wants to rule out delirium at this point, most likely the patient has urinary tract infection and she is on antibiotics. PLAN: This is highly unlikely that the patient will sign herself into the Psychiatric Inpatient Unit, but we will follow up and advise accordingly. The patient most likely requires screening at this point. The patient has long history of mental illness, ECT treatment in the past. Prolonged hospitalization most recent was in [place] in 2009. The patient's family is raising highest concerns about the patient's safety. The patient's niece is Aline Boykin, phone number is [phone]. This senior underwriter did not disclose information because this senior underwriter did not get permission from the patient, but family contacted this senior underwriter and expressed highest concerns, please see above. Dr. Ash will follow up on this patient. Most likely, the patient would require screening after medical stabilization. The patient lacks capacity to sign against medical advice. Thank you very much. Mary Moscoso MD
[2018-04-10] MEDS: metroNIDAZOLE IV 500 mg/100 ml 500 MG/100 ML BAG IVPB SCH ×3 (05:15→21:23)
[2018-04-10] MEDS: POLYETHYLENE GLYCOL 3350 17 GM/Dose PACKET PO SCH ×2 (09:48→18:28)
[2018-04-10] MEDS: levoFLOXacin 750 mg in D5W 750 MG/150 ML BAG IVPB SCH (09:48)
--- NOTE | 2018-04-10 10:23 | CP.PCM.PN ---
Subjective - Date & Time of Evaluation Date of Evaluation: 04/10/18 Time of Evaluation: 09:20 - Subjective Subjective: Diogenes Marroquin PGY2 IM Progress Note for Dr. Wright Patient was seen and examined at bedside. Yesterday, the patient became agitated over a discussion with psychiatry team regarding consent to discuss medical information with her niece. The patient continues to be agitated this morning and required 1:1 observation for safety. The patient was evaluated by psychiatry team and they ruled that patient does not have capacity to sing out AMA and recommended screening by [facility] for involuntary psychiatric admission. The patient denies any chest pain, abdominal pain, nausea/vomiting/diarrhea/ constipation, fever/chills or any focal weakness, and that she is good and not requiring further medical care. Objective - Vital Signs/Intake and Output Vital Signs (last 24 hours): Temp Pulse Resp BP Pulse Ox 97.5 F L 6 L 20 167/86 H 100 04/10/18 06:00 04/10/18 06:00 04/10/18 06:00 04/10/18 06:00 04/10/18 06:00 - Medications Medications: Current Medications Acetaminophen (Tylenol 325mg Tab) 650 mg PO Q6 PRN PRN Reason: TEMP>=99.5F Acetaminophen (Tylenol 650 Mg Supp) 650 mg RC Q6H PRN PRN Reason: TEMP>=99.5F Chlorpromazine (Thorazine) 100 mg PO HS CARMITA PRN Reason: Protocol Last Admin: 04/09/18 21:30 Dose: Not Given Chlorpromazine (Thorazine) 50 mg IM Q6 PRN; Protocol PRN Reason: Agitation Last Admin: 04/10/18 09:23 Dose: 50 mg Docusate Sodium (Colace) 100 mg PO TID CARMITA Last Admin: 04/10/18 09:48 Dose: Not Given Heparin Sodium (Porcine) (Heparin) 5,000 units SC Q8 CARMITA PRN Reason: Protocol Last Admin: 04/10/18 05:15 Dose: Not Given Hydromorphone HCl (Dilaudid) 0.5 mg IVP Q4H PRN PRN Reason: Pain, moderate (4-7) Metronidazole (Flagyl) 500 mg in 100 mls @ 100 mls/hr IVPB Q8 CARMITA PRN Reason: Protocol Last Admin: 04/10/18 05:15 Dose: Not Given Lactated Ringer's (Lactated Ringer's) 1,000 mls @ 125 mls/hr IV .Q8H [facility] Last Admin: 04/09/18 17:07 Dose: Not Given Iron Sucrose 200 mg/ Sodium (Chloride) 110 mls @ 110 mls/hr IVPB DAILY [facility] Stop: 04/12/18 10:59 Last Admin: 04/10/18 09:48 Dose: Not Given Levofloxacin/Dextrose (Levaquin 750mg) 750 mg in 150 mls @ 100 mls/hr IVPB DAILY [facility] Last Admin: 04/10/18 09:48 Dose: Not Given Ondansetron HCl (Zofran Inj) 4 mg IVP Q4H PRN PRN Reason: Nausea/Vomiting Pantoprazole Sodium (Protonix Inj) 40 mg IVP Q12 [facility] Last Admin: 04/10/18 09:48 Dose: Not Given Polyethylene Glycol (Miralax) 17 gm PO BID [facility] Last Admin: 04/10/18 09:48 Dose: Not Given Propranolol HCl (Inderal) 10 mg PO DAILY [facility] Last Admin: 04/10/18 09:48 Dose: Not Given - Labs Labs: 04/09/18 06:00 04/09/18 06:00 - Additional Findings Additional findings: - Constitutional Appears: Well, Non-toxic, No Acute Distress - Head Exam Head Exam: NORMAL INSPECTION - Eye Exam Eye Exam: EOMI, Normal appearance, PERRL - ENT Exam ENT Exam: Mucous Membranes Moist - Neck Exam Neck Exam: Normal Inspection - Respiratory Exam Respiratory Exam: Clear to Ausculation Bilateral, NORMAL BREATHING PATTERN. absent: Rales, Rhonchi, Wheezes, Respiratory Distress - Cardiovascular Exam Cardiovascular Exam: RRR, +S1, +S2. absent: JVD, Murmur - GI/Abdominal Exam GI & Abdominal Exam: Guarding, Soft, Tenderness (diffuse, mild), Normal Bowel Sounds. absent: Distended, Rigid, Rebound - Extremities Exam Extremities Exam: Full ROM. absent: Pedal Edema - Back Exam Back Exam: NORMAL INSPECTION - Neurological Exam Neurological Exam: Alert, Altered (at baseline), Awake, CN II-XII Intact - Psychiatric Exam Psychiatric exam: Normal Mood - Skin Skin Exam: Normal Color Assessment and Plan - Assessment and Plan (Free Text) Assessment: 72-year-old female with a PMH of HTN and schizophrenia who presented to the ED for generalized weakness, found to have episode of diverticulitis. The patient is on antibiotics, stool softeners and receiving fluids. Diet was advanced by GI to low residue, and Dr. Tay recommends an elective colonoscopy 1 month after discharge. Psychiatry is also following due to patient's history of schizophrenia, and patient has become acutely agitated which is not her baseline. Abdominal pain is improving and controlled with current regimen. Patient is pending [facility] screening for involuntary psych admission. Plan: 1. Diverticulitis - cont on Levaquin - cont Flagyl - cont Miralax/colace - Zofran PRN - advanced to low fiber diet - GI is following - recommended due to have colonoscopy 1month after discharge - PT eval recommending HWS 2. Hx Schizophrenia - Thorazine HS and PRN - Psch consulted, recommend psych involuntary admission w/ [facility] screening - patient lacks capacity to sign out AMA 3. UTI - culture positive but asymptomatic - patient on Levaquin for coverage 4. Anemia - Venofer ordered 5. PPX - Heparin/SCDs for DVT ppx - PTX for GI ppx Case was reviewed and discussed with attending, Dr. Adriana Marroquin PGY2
--- NOTE | 2018-04-10 12:33 | PN ---
Copied To: Tomas Tay MD Attending MD: Tomas Tay MD DATE: 04/10/2018 SUBJECTIVE: The patient is lying in bed. She had an episode of confusion last night. The patient is agitated. She is refusing me to examine her. She states that she does not want me to see her, that she is going to [facility]. She denies any abdominal pain. The patient's white count is 5.5. She has thickening of the sigmoid descending colon junction with probable diverticulitis. I cannot rule out an underlying mass. The patient has been informed of this and I specifically mentioned that cancer needs to be ruled out. The patient was also instructed that she will need a colonoscopy in about 3-4 weeks after her diverticulitis has been treated and resolved. The patient states that she will go to her own doctor at [facility]. Tomas Tay MD
[2018-04-10] MEDS: Lactated Ringer's 1,000 ML IV SCH (21:23)
--- NOTE | 2018-04-10 23:34 | CON ---
Copied To: Maria De Jesus Ash MD Attending MD: Maria De Jesus Ash MD DATE: 04/10/2018 HISTORY OF PRESENT ILLNESS: The patient is a 72-year-old female with history of schizophrenia, numerous psychiatric admissions in the past, who is on the medical floor, being stabilized. Psychiatry is following the patient because the patient is acutely psychotic with symptoms of disorganization, paranoia, agitation, advent preoccupation and delusions. The patient had these symptoms yesterday and I read Dr. Moscoso's notes, which she recommended screening once the patient is medically stabilized. I continued to recommend this intervention as the patient is completely unable to participate in interview with me despite my reassurances. The patient is continued to be disorganized, unpredictable, irritable, illogical, religiously preoccupied and cannot care for herself in this respect. She has not been sleeping and speaking loudly and noted to be talking to herself many times during the course of her medical stay thus far. Her insight and judgment are poor. Vital signs and labs were reviewed. RELEVANT PSYCHIATRIC MEDICATIONS: Include Thorazine 100 mg p.o. at bedtime, the patient refused last night's dose; 50 mg IM every 6 p.r.n. of which the patient received a dose of 50 mg at 9:23 a.m. today, she comes with no surprise to this telegraphic typewriter mechanic. IMPRESSION: Schizophrenia. RECOMMENDATIONS: We will continue with current treatment and plan and try to elicit the patient's cooperation; however, the patient is acutely psychotic and paranoid and it is difficult to offer cooperation with this provider or other providers. She is medically stabilized, she is not psychiatrically cleared. [facility] should be contacted for screening, so she can be involuntarily transferred to the psychiatric unit as she will not sign involuntarily at this time to our psychiatric unit. Maria De Jesus Ash MD
--- NOTE | 2018-04-11 00:44 | PN ---
Copied To: Fitz Wright MD Attending MD: Fitz Wright MD DATE: 04/10/2018 SUBJECTIVE: Overnight nurse's notes were reviewed. The patient attempted to elope yesterday. The patient was evaluated by the psychiatrist. The patient was put on one to one. The patient was started on IM p.r.n. Thorazine. The patient was found to be psychotic, religiously preoccupied and with delusional. The patient was seen and evaluated by psychiatrist. Psychiatrist has advised the patient does not have the capacity to leave the hospital against medical advise or elope. The patient is placed on one to one observation. PHYSICAL EXAMINATION: VITAL SIGNS: T-max 98.4; pulse 84, , 71; blood pressure 150/87, 148/81, 167/67, 160/90; respirations 20; O2 sat 96%. GENERAL: The patient is seen lying in the bed. The patient is uncooperative. The patient is agitated. The patient does not want to be examined. The patient appears to be religiously preoccupied, delusional with auditory hallucination because the patient states that the God is talking to her. HEENT: Head: Normocephalic, atraumatic. Pinkish pale conjunctivae. Anicteric sclerae. No oropharyngeal lesion. No neck rigidity. CHEST: Kyphosis. LUNGS: Examination shows no rales, crackles or wheezing. CARDIOVASCULAR: S1 and S2, regular rhythm. ABDOMEN: Soft. Positive bowel sounds. No rebound tenderness. No guarding. No rigidity. No costovertebral angle tenderness. GENITALIA: Female. RECTAL: Examination is deferred. EXTREMITIES: Shows no pitting edema, no calf tenderness, no Sneha's sign. NEUROLOGIC: The patient is alert, awake, responsive. Delusional. Gait examination is not tested. Patient is presently on one to one. DIAGNOSTICS: 04/09 noted CBC noted, chemistry from 04/09 noted. Urine culture, gram-positive cocci. IMPRESSION AND PLAN: 1. Acute diverticulitis, slow resolving. 2. Poor compliance. 3. Latter Day preoccupation with psychosis and history of schizophrenia and paranoid schizophrenia. 4. Noncompliance. 5. Decompensated schizophrenia. 6. Latter Day preoccupation with fixated believes with irritable behavior. 7. Hypertension. 8. Normocytic iron-deficiency anemia. 9. Hyperglycemia. 10. Pyuria and bacteriuria. 11. Gram-positive cocci urinary tract infection. PLAN: At this time, the patient has been ordered repeat labs. The patient is placed on one to one observation. The patient's case is referred to involuntary screening evaluation at [facility] by the Psychiatry. CONSULTATIONS: Psychiatry and Gastroenterology. CURRENT MEDICATIONS: Colace 100 mg three times a day, Dilaudid 0.5 mg IV every 4 hours p.r.n., Flagyl 500 IV every 8 hours, heparin 5000 subcu every 8, Inderal 10 mg daily, Venofer 200 mg IV daily, Ringer's lactate 125 mL an hour which will be decreased to 75 mL an hour. Patient's IV fluid, Ringer's lactate is decreased to 75 mL an hour for elevated blood pressure. The patient is on Levaquin 750 IV daily, MiraLax 17 g twice a day, Protonix 40 IV every 12, Thorazine 50 mg IM every 6 hours p.r.n. and Thorazine 100 mg p.o. at bedtime, Tylenol p.r.n., Zofran 4 IV every 4 p.r.n. The patient is started on altered GI hepatic diet. The patient is on one to one sitter. The patient is on out of bed to chair, CAMELIA stockings, SCDs, stool occult blood ordered. We are awaiting the patient's evaluation by the psychiatry screener for involuntary transfer admission to the Inpatient Psych Unit at [place] or possible other options. Dictated and electronically signed, not read. Fitz Wright MD
[2018-04-11] MEDS: metroNIDAZOLE IV 500 mg/100 ml 500 MG/100 ML BAG IVPB SCH ×3 (05:02→21:52)
[2018-04-11 06:47] LABS: BASO # 0.03 K/mm3 (0.0-2.0); BASO % 0.5 % (0.0-3.0); EOS # 0.2 (0.0-0.7); EOS % 3.3 % (1.5-5.0); GRAN # 3.61 (1.4-6.5); GRAN % 61.9 % (50.0-68.0); HEMOGLOBIN 10.9 g/dL (12.0-16.0); LYMPH # 1.5 (1.2-3.4); LYMPH % 26.4 % (22.0-35.0); MEAN CORPUSCULAR HEMOGLOBIN 28.9 pg (25.0-35.0); MEAN CORPUSCULAR HGB CONC 33.2 g/dl (31.0-37.0); MEAN PLATELET VOLUME 8.9 fl (7.0-11.0); MONO # 0.5 (0.1-0.6); MONO % 7.9 % (1.0-6.0); RBC 3.77 10^6/uL (3.5-6.1); RED CELL DISTRIBUTION WIDTH 13.9 % (11.5-14.5); WHITE BLOOD COUNT 5.8 10^3/ul (4.5-11.0)
[2018-04-11 07:27] LABS: ALB/GLOB RATIO 1.1 (1.1-1.8); BILIRUBIN,DIRECT 0.1 mg/dL (0.0-0.4); CALCIUM 9.1 mg/dL (8.4-10.5)
--- NOTE | 2018-04-11 09:37 | CP.PCM.PN ---
Subjective - Date & Time of Evaluation Date of Evaluation: 04/11/18 Time of Evaluation: 09:17 - Subjective Subjective: Diogenes Marroquin PGY2 IM Progress Note for Dr. Wright Patient was seen and examined at bedside. The patient continues to require 1:1 observation for safety and periods of agitation. The patient was evaluated by psychiatry team and they ruled that patient does not have capacity to sing out AMA and recommended screening by [facility] for involuntary psychiatric admission; paperwork was faxed by nursing staff and pending screening. The patient denies any chest pain, abdominal pain, nausea/vomiting/diarrhea/constipation, fever/ chills or any focal weakness, and that she is good and not requiring further medical care. Objective - Vital Signs/Intake and Output Vital Signs (last 24 hours): Temp Pulse Resp BP Pulse Ox 97.3 F L 95 H 20 153/89 H 97 04/11/18 08:19 04/11/18 08:19 04/11/18 08:19 04/11/18 08:19 04/11/18 08:19 Intake and Output: 04/11/18 04/11/18 06:59 18:59 Intake Total 960 Balance 960 - Medications Medications: Current Medications Acetaminophen (Tylenol 325mg Tab) 650 mg PO Q6 PRN PRN Reason: TEMP>=99.5F Acetaminophen (Tylenol 650 Mg Supp) 650 mg RC Q6H PRN PRN Reason: TEMP>=99.5F Chlorpromazine (Thorazine) 100 mg PO HS CARMITA PRN Reason: Protocol Last Admin: 04/10/18 22:00 Dose: Not Given Chlorpromazine (Thorazine) 50 mg IM Q6 PRN; Protocol PRN Reason: Agitation Last Admin: 04/10/18 09:23 Dose: 50 mg Docusate Sodium (Colace) 100 mg PO TID CARMITA Last Admin: 04/10/18 18:28 Dose: Not Given Heparin Sodium (Porcine) (Heparin) 5,000 units SC Q8 CARMITA PRN Reason: Protocol Last Admin: 04/10/18 21:23 Dose: Not Given Hydromorphone HCl (Dilaudid) 0.5 mg IVP Q4H PRN PRN Reason: Pain, moderate (4-7) Metronidazole (Flagyl) 500 mg in 100 mls @ 100 mls/hr IVPB Q8 CARMITA PRN Reason: Protocol Last Admin: 04/11/18 05:02 Dose: Not Given Iron Sucrose 200 mg/ Sodium (Chloride) 110 mls @ 110 mls/hr IVPB DAILY [facility] Stop: 04/12/18 10:59 Last Admin: 04/10/18 09:48 Dose: Not Given Levofloxacin/Dextrose (Levaquin 750mg) 750 mg in 150 mls @ 100 mls/hr IVPB DAILY [facility] Last Admin: 04/10/18 09:48 Dose: Not Given Lactated Ringer's (Lactated Ringer's) 1,000 mls @ 75 mls/hr IV .[id number] [facility] Last Admin: 04/10/18 21:23 Dose: Not Given Ondansetron HCl (Zofran Inj) 4 mg IVP Q4H PRN PRN Reason: Nausea/Vomiting Pantoprazole Sodium (Protonix Inj) 40 mg IVP Q12 [facility] Last Admin: 04/10/18 23:00 Dose: Not Given Polyethylene Glycol (Miralax) 17 gm PO BID [facility] Last Admin: 04/10/18 18:28 Dose: Not Given Propranolol HCl (Inderal) 10 mg PO DAILY [facility] Last Admin: 04/10/18 09:48 Dose: Not Given - Labs Labs: 04/11/18 06:00 04/11/18 06:00 - Additional Findings Additional findings: - Constitutional Appears: Well, Non-toxic, No Acute Distress - Head Exam Head Exam: NORMAL INSPECTION - Eye Exam Eye Exam: EOMI, Normal appearance, PERRL - ENT Exam ENT Exam: Mucous Membranes Moist - Neck Exam Neck Exam: Normal Inspection - Respiratory Exam Respiratory Exam: Clear to Ausculation Bilateral, NORMAL BREATHING PATTERN. absent: Rales, Rhonchi, Wheezes, Respiratory Distress - Cardiovascular Exam Cardiovascular Exam: RRR, +S1, +S2. absent: JVD, Murmur - GI/Abdominal Exam GI & Abdominal Exam: Guarding, Soft, Normal Bowel Sounds. absent: Distended, Rigid, Rebound, Tenderness - Extremities Exam Extremities Exam: Full ROM. absent: Pedal Edema - Back Exam Back Exam: NORMAL INSPECTION - Neurological Exam Neurological Exam: Alert, Altered (at baseline), Awake, CN II-XII Intact - Psychiatric Exam Psychiatric exam: Normal Mood. Absent: Agitation - Skin Skin Exam: Normal Color Assessment and Plan - Assessment and Plan (Free Text) Assessment: 72-year-old female with a PMH of HTN and schizophrenia who presented to the ED for generalized weakness, found to have episode of diverticulitis. The patient is on antibiotics, stool softeners and receiving fluids; she has been refusing meds over the past day. Diet was advanced by GI to low residue, and Dr. Tay recommends an elective colonoscopy 1 month after discharge. Psychiatry is also following due to patient's history of schizophrenia, and patient has become acutely agitated which is not her baseline and is requiring PRN IM Thorazine. Patient is pending [facility] screening for involuntary psych admission. Abdominal pain has resolved. Plan: 1. Diverticulitis - cont Flagyl - cont Miralax/colace - Zofran PRN - advanced to low fiber diet - GI is following - recommended due to have colonoscopy 1month after discharge - PT eval recommending HWS 2. Hx Schizophrenia - Thorazine HS and PRN - Psch consulted, recommend psych involuntary admission w/ [facility] screening - patient lacks capacity to sign out AMA - [facility] screening pending 3. UTI - culture positive but asymptomatic - patient on Levaquin for coverage 4. Anemia - Venofer ordered 5. PPX - Heparin/SCDs for DVT ppx - PTX for GI ppx Case was reviewed and discussed with attending, Dr. Adriana Marroquin PGY2
--- NOTE | 2018-04-11 10:51 | PN ---
Copied To: Tomas Tay MD Attending MD: Tomas Tay MD DATE: 04/11/2018 SUBJECTIVE: The patient is lying in bed. She has a rosary in her hand and is praying. She denies any abdominal pain, nausea or vomiting. PHYSICAL EXAMINATION: VITAL SIGNS: Reveal temperature of 97.3, blood pressure 153/89, heart rate 95. HEENT: Reveal sclerae to be white. Conjunctivae pink. NECK: Supple. CHEST: Lungs are clear. HEART: Reveals regular rate and rhythm. ABDOMEN: Soft, nontender. No mass. EXTREMITIES: Show no edema. LABORATORY DATA: Reveal white blood cell count 5.8, hemoglobin 10.9. Electrolytes are normal. IMPRESSION: 1. Acute left-sided diverticulitis. 2. Schizophrenia. 3. Anemia. RECOMMENDATIONS: 1. Continue IV antibiotics. 2. The patient is stable from GI standpoint. She is awaiting commitment to [facility]. 3. The patient has been instructed that she will need a colonoscopy to rule out a colon lesion in approximately 4 weeks. She has stated to me that she will follow up with a doctor at the [facility]. I will touch base with the patient as an outpatient. Tomas Tay MD
[2018-04-11] MEDS: POLYETHYLENE GLYCOL 3350 17 GM/Dose PACKET PO SCH ×2 (11:49→18:00)
[2018-04-11] MEDS: levoFLOXacin 750 mg in D5W 750 MG/150 ML BAG IVPB SCH (11:51)
--- NOTE | 2018-04-11 14:08 | PN ---
Copied To: Fitz Wright MD Attending MD: Fitz Wright MD DATE: 04/11/2018 SUBJECTIVE: The patient is seen in room 372, bed 2. The patient is more alert and responsive. The patient does not appear to be uncooperative today. The patient is much more cooperative and alert, awake, responsive. The patient denies any abdominal pain. Denies nausea. Denies diarrhea. Denies constipation. Denies hemoptysis, hematemesis, melena. Overnight nurse's notes were reviewed. The patient yesterday evening refused all medication. The patient was found to be anxious and yelling in her room. The patient maintained on one-to-one sitter. The patient received IM Thorazine for agitation. Overnight, the patient was found to be alert, awake, oriented x2, refused all medications. The nurses have called [facility] crisis hotline. Information was faxed to [facility] crisis hotline. PHYSICAL EXAMINATION: VITAL SIGNS: T-max 98.4; pulse 84, 95; blood pressure 153/89; respirations 20; O2 sat 97%. HEENT: Head examination normocephalic, atraumatic. HEENT examination shows pink conjunctivae. Anicteric sclerae. No oropharyngeal lesion. No neck rigidity. CHEST: Kyphosis. LUNGS: Shows no rales, crackles or wheezing. CARDIOVASCULAR: S1, S2. Regular rhythm. ABDOMEN: Soft, slightly protuberant, distended. No guarding, rigidity or rebound tenderness noted. No costovertebral angle tenderness noted. GENITALIA: Female. RECTAL: Deferred. EXTREMITY: Shows no pitting edema, no calf tenderness, no Sneha's signs. Positive varicose veins noted. MUSCULOSKELETAL: Shows body mass index of 31. NEUROLOGICAL: The patient is alert, awake, responsive, follows command. Moves upper and lower extremity without assistance, but musculoskeletal examination shows a body mass index of 31.1. DIAGNOSTICS: On 04/11/2018, WBC is 5.8, hemoglobin and hematocrit 11 and 32.8, platelet 275. Sodium 141, potassium 4.4, chloride 104, CO2 of 24, anion gap 16, BUN 20, creatinine 1.1, GFR 59, glucose 97, calcium 9.1, phosphorus 3.9, magnesium 2, AST 68. Rest of the LFTs are normal. Urine culture, gram-positive cocci. Blood cultures negative. IMPRESSION AND PLAN: 1. Acute slow resolving diverticulitis. 2. Questionable constipation. 3. Paranoid schizophrenia. 4. Psychosis. 5. Paranoia, disorganization, agitation and sikhism preoccupations with delusions. 6. Iron-deficiency normocytic anemia. 7. Obesity with elevated body mass index of 31. 8. Partially contracted gallbladder. 9. Gastric fluid. 10. Dilated small bowel loop with mucosal enhancement. 11. Fecal stasis in the ascending and transverse colon. 12. Left hemicolon mild segmental mural thickening with left-sided colonic diverticulosis. 13. Left distal descending and proximal sigmoid colon severe mural thickening and pericolonic inflammatory changes with acute diverticulitis. 14. Gastric and small bowel loop fluid, questionable nonspecific antritis. 15. Poor compliance and noncompliance. 16. Right bundle-branch block. 17. Decompensated schizophrenia. 18. Paranoid schizophrenia with sikhism preoccupation and delusion. 19. Acute kidney injury (resolved). 20. Pyuria, bacteriuria and gram-positive cocci urinary tract infection. 21. Episcopalian preoccupation with fixated believes with irritable behavior. 22. History of constipation, history of bipolar disorder, history of paranoid schizophrenia. 23. Fecal stasis. 24. History of hypertension. Plan at this time, the patient's repeat labs have been ordered. The patient's repeat labs were reviewed. The patient's labs have been stable in the last 3-4 days. CURRENT CONSULTATION: Gastroenterology and Psychiatry. CURRENT MEDICATIONS: Colace 100 mg three times a day, Dilaudid 0.5 mg IV every four p.r.n., Flagyl 500 IV every eight, heparin 5000 subcu every eight, Inderal 10 mg p.o. daily, Venofer 200 mg IV daily for total of 5 doses, Ringer's lactate 75 mL an hour, which will be considered for discontinuation as the patient is on altered GI diet. The patient is on Levaquin 750 IV daily, MiraLax 17 g twice a day, Protonix 40 IV every 12, Thorazine 50 mg IM every 6 hours p.r.n. and Thorazine 100 mg at bedtime, Tylenol p.r.n., Zofran 4 mg IV every four p.r.n. The patient is on one-to-one sitter. The patient has been ordered out of bed, CAMELIA servin SCDs. Stool occult blood still pending. At present, plan is to continue IV antibiotics. GI recommends elective colonoscopy in few weeks. According to the GI, the patient needs elective colonoscopy in about 4-6 weeks, which has been daily reinforced to the patient. The patient is awaiting [facility] crisis hotline evaluation for possible transfer to involuntary unit. The patient will be continued on the medications as per the psychiatrist. Recommendations by Gastroenterology and Psychiatry noted. Dictated and electronically signed, not read. Fitz Wright MD
[2018-04-11] MEDS: Lactated Ringer's 1,000 ML IV SCH (20:42)
[2018-04-12] MEDS: metroNIDAZOLE IV 500 mg/100 ml 500 MG/100 ML BAG IVPB SCH ×3 (05:43→21:13)
--- NOTE | 2018-04-12 08:03 | CON ---
Copied To: Maria De Jesus Ash MD Attending MD: Maria De Jesus Ash MD DATE: 04/11/2018 HISTORY OF PRESENT ILLNESS: The patient is a 72-year-old female with history of schizophrenia, numerous psychiatric admissions. This psychiatrist is being on the medical floor while the patient is being medically stabilized. The patient has been acutely psychotic with symptoms of disorganization, paranoia, agitation, lutheran preoccupation, and delusions. She has been uncooperative with staff members regarding participating in an interview, and she has also been refusing medications. Dr. Moscoso strongly recommended screening once the patient is medically stabilized as she is to be a danger to herself or others due to her acute psychotic symptoms. I reviewed nursing notes, which indicates the patient continued to be delusional, religiously preoccupied, and I am with her at bedside this morning. The patient actually admitted this morning as she has been a little calmer though she is acutely paranoid and religiously preoccupied and delusional. She denied any depression. She denied any hallucinations, and she since 03/2018 . She would not participate fully in the interview; however, was able to answer a few questions, which is much more than she was able to do yesterday. She still appears labile and unpredictable, and her insight and judgment are poor. Vital signs are not reviewed. Relevant psychiatric medications include at bedtime as well as 6 mg IM every 6 hours p.r.n. IMPRESSION: Schizophrenia. RECOMMENDATIONS: We will continue with current treatment and plan, and try to elicit the patient's cooperation; however, the patient is acutely paranoid and psychotic, and it is difficult to obtain her cooperation in this respect. When she is medically stabilized, she is not psychiatric cleared and should be referred to [facility] for screening for involuntary psychiatric hospitalization. Psychiatry will continue to follow up and try to elicit her trust and cooperation. Maria De Jesus Ash MD
--- NOTE | 2018-04-12 08:17 | CP.PCM.PN ---
Subjective - Date & Time of Evaluation Date of Evaluation: 04/12/18 Time of Evaluation: 08:00 - Subjective Subjective: (covering for Dr. Wright) Patient is seen this morning. She complains of constipation. Denies abdominal pain. Objective - Vital Signs/Intake and Output Vital Signs (last 24 hours): Temp Pulse Resp BP Pulse Ox 97.3 F L 79 18 146/82 99 04/11/18 17:30 04/11/18 17:30 04/11/18 17:30 04/11/18 17:30 04/11/18 17:30 - Medications Medications: Current Medications Acetaminophen (Tylenol 325mg Tab) 650 mg PO Q6 PRN PRN Reason: TEMP>=99.5F Acetaminophen (Tylenol 650 Mg Supp) 650 mg RC Q6H PRN PRN Reason: TEMP>=99.5F Chlorpromazine (Thorazine) 100 mg PO HS CARMITA PRN Reason: Protocol Last Admin: 04/11/18 21:53 Dose: 100 mg Chlorpromazine (Thorazine) 50 mg IM Q6 PRN; Protocol PRN Reason: Agitation Last Admin: 04/10/18 09:23 Dose: 50 mg Docusate Sodium (Colace) 100 mg PO TID CARMITA Last Admin: 04/11/18 18:00 Dose: 100 mg Heparin Sodium (Porcine) (Heparin) 5,000 units SC Q8 CARMITA PRN Reason: Protocol Last Admin: 04/12/18 05:42 Dose: 5,000 units Hydromorphone HCl (Dilaudid) 0.5 mg IVP Q4H PRN PRN Reason: Pain, moderate (4-7) Metronidazole (Flagyl) 500 mg in 100 mls @ 100 mls/hr IVPB Q8 CARMITA PRN Reason: Protocol Last Admin: 04/12/18 05:43 Dose: 100 mls/hr Iron Sucrose 200 mg/ Sodium (Chloride) 110 mls @ 110 mls/hr IVPB DAILY [facility] Stop: 04/12/18 10:59 Last Admin: 04/11/18 11:53 Dose: 110 mls/hr Levofloxacin/Dextrose (Levaquin 750mg) 750 mg in 150 mls @ 100 mls/hr IVPB DAILY [facility] Last Admin: 04/11/18 11:51 Dose: 100 mls/hr Ondansetron HCl (Zofran Inj) 4 mg IVP Q4H PRN PRN Reason: Nausea/Vomiting Last Admin: 04/12/18 05:41 Dose: 4 mg Pantoprazole Sodium (Protonix Inj) 40 mg IVP Q12 [facility] Last Admin: 04/11/18 21:53 Dose: 40 mg Polyethylene Glycol (Miralax) 17 gm PO BID [facility] Last Admin: 04/11/18 18:00 Dose: 17 gm Propranolol HCl (Inderal) 10 mg PO DAILY [facility] Last Admin: 04/11/18 11:50 Dose: 10 mg - Labs Labs: 04/11/18 06:00 04/11/18 06:00 - Constitutional Appears: No Acute Distress - Head Exam Head Exam: ATRAUMATIC, NORMOCEPHALIC - Respiratory Exam Respiratory Exam: Clear to Ausculation Bilateral, NORMAL BREATHING PATTERN - Cardiovascular Exam Cardiovascular Exam: REGULAR RHYTHM, +S1, +S2 - GI/Abdominal Exam GI & Abdominal Exam: Soft. absent: Tenderness - Neurological Exam Neurological Exam: Alert, Awake Assessment and Plan - Assessment and Plan (Free Text) Assessment: Left sided diverticulitis Schizophrenia Iron deficiency anemia HTN Plan: Patient denies abdominal pain. continue antibiotics. continue psychiatric management. Patient is awaiting transfer to [facility] involuntary psychiatric unit. continue colace for constipation. Will add dose of lactulose.
[2018-04-12 08:49] VITALS: RESP 20
[2018-04-12] MEDS: POLYETHYLENE GLYCOL 3350 17 GM/Dose PACKET PO SCH (09:24)
[2018-04-12] MEDS: levoFLOXacin 750 mg in D5W 750 MG/150 ML BAG IVPB SCH (09:25)
[2018-04-12 09:40] VITALS: PULSE 80
[2018-04-12 16:20] VITALS: BP 140/80; TEMP 98; O2SAT 95
--- NOTE | 2018-04-12 23:39 | CON ---
Copied To: Maria De Jesus Ash MD Attending MD: Maria De Jesus Ash MD DATE: 04/12/2018 HISTORY OF PRESENT ILLNESS: Patient is a 72- year-old female with history of schizophrenia, multiple psychiatric admissions with psychiatry seeing on the medical floor due to acute psychotic symptoms of disorganization, paranoia, agitation, oriental orthodox preoccupation and delusion. Patient actually has been improving in the last 48 hours and has been a lot more cooperative with staff members regarding participating in interview though she continued to be religiously preoccupied. Her organization and focus are improved. She is much less paranoid and does not appear to be hallucinating. Patient is able to let me know consistently that she denies any depression, hallucinations, thoughts to harm herself or harm others. She refers to [facility] taking care of her, however, does not want to or harm herself as noted above. Patient denies paranoia and indicates that she has separate medical team helping her and she did participate in an interview with [facility] screeners yesterday and who found her not to meet criteria for involuntary . Patient does not want psychiatric treatment by this provider whether it is the outpatient, inpatient or psychiatric referral, however, I did strongly recommend that she obtain this referral. Patient's family member came yesterday to visit and indicated that she was currently at her baseline and did not feel that she is a danger to herself or others and did not need any hospitalization at this time. It was also noted that patient did agree to take 100 mg of Thorazine last night and has been cooperative with treatment recommendations in this respect. Patient is medically cleared. Her insight and judgment are improving although they are not ideal She is psychiatrically cleared as [place] will not accept her and she will not sign in to the voluntary unit. Vital signs are not reviewed. RELEVANT PSYCHIATRIC MEDICATIONS: Include Thorazine 100 mg p.o. at bedtime. IMPRESSION: Schizophrenia, schizoaffective disorder by history. Patient remains religiously preoccupied, however, her overall mental status has improved and she is likely affected by delirium as schizophrenia does not resolve exquisitely with minimal medications that she has received in the medical floor. RECOMMENDATIONS: At this time, patient is psychiatrically cleared for discharge as she does not meet criteria for involuntary treatment and she refuses to sign in for voluntary treatment. Patient should receive outpatient referrals for continued psychiatric treatment and prescription for Thorazine should be continued until she is able to obtain her first appointment to see a mental health professional to continue these medications. Maria De Jesus Ash MD
[2018-04-13] MEDS: metroNIDAZOLE IV 500 mg/100 ml 500 MG/100 ML BAG IVPB SCH (05:14)
[2018-04-13] MEDS: POLYETHYLENE GLYCOL 3350 17 GM/Dose PACKET PO SCH (10:03)
[2018-04-13] MEDS: levoFLOXacin 750 mg in D5W 750 MG/150 ML BAG IVPB SCH (10:03)
--- NOTE | 2018-04-14 22:59 | CON ---
Copied To: Maria De Jesus Ash MD Attending MD: Maria De Jesus Ash MD DATE: 04/13/2018 HISTORY OF PRESENT ILLNESS: The patient is a 72-year-old female originally from [place] with a history of schizophrenia, multiple psychiatric admissions, who is being seen by Psychiatry on the medical floor due to continued restorationist preoccupation, disorganization and paranoia. The patient had shown improvement in her disorganization and agitation and delusions on the medical floor in the last couple of days and [facility] did not find the patient to meet criteria for involuntary commitment. I met with her at bedside today and she remembers me from my interview with her yesterday and she is generally cooperative with my questioning; although she feels a little bit more reluctant today. She is definitely less agitated and less paranoid and she does not self-escalate as easily. She was responding to my questions calmly; however, without much elaboration. She continues to be not having any depression or hallucinations or thoughts of harm others or herself. She has been compliant with Thorazine prescribed to her at night. and she does not mention Reyes at all during the course of our conversation today, which is a huge improvement in her obsessive restorationist preoccupation in the last couple of days. However, the patient does report that she does not want to go home as she is afraid to go home and she is unable to indicate the source of the fear and her thought process becomes a little bit illogical at this time when I asked her to clarify. This provider was able to elicit that there was some concern on her part regarding the specific individual named Rashad or Tomas. Regardless, this does make sense, and I asked the patient if she do want to sign into the psychiatric unit voluntarily for treatment, and she indicates that she is willing to pursue this and I had asked her a few times in the course of our conversation if she is willing to sign into a psychiatric unit for health treatment, and the patient indicated understanding of this treatment option, especially in the context of my concern about her paranoia about returning back home. I spoke with nursing and nursing indicated that they will contact with her medical team to obtain medical clearance, so that she can sign involuntarily to our unit as she is now willing to do so. As noted, her insight and judgment are improving, they are not ideal; however, she is not considered a danger to herself or others screeners and while she does not need a psychiatric hospitalization, this provider wholly thinks that the patient would benefit from one. Her insight and judgment are improved since the initiation of her medical hospitalization. Vital signs reviewed. RELEVANT PSYCHIATRIC MEDICATIONS: Include Thorazine 100 mg p.o. at bedtime. IMPRESSION: Schizophrenia by history. The patient is less religiously preoccupied; however, more paranoid today. Overall, her mental status has improved and she is likely affected by symptoms of schizophrenia as well as delirium when she was acutely psychotic in last couple of days. This delirium diagnosis is likely because schizophrenia does not resolve as acutely with such minimal medications that she received on the medical floor. RECOMMENDATIONS: The patient may sign in psychiatrically to the psychiatric unit once she is medically cleared, she is willing to do so at this time. If she is unwilling to sign in psychiatrically, she is psychiatrically cleared as mentioned above. [facility] screeners will not involuntarily commit her as she does not appear to be a danger to herself or others. Maria De Jesus Ash MD
== END 2018-04-13 15:31 | disposition home or self-care (01) | DRG 392 ==
LOC: ED 20:08 → ERH 22:38 → 3RSO 04-08 01:51 → OBSVTOIN 04-08 11:50 → 3RSO 04-09 17:56
PROVIDERS: ADMIT Internal Medicine; ATTEND Internal Medicine
DX: K57.32 Diverticulitis of large intestine without perforation or abscess without bleeding (principal); F20.0 Paranoid schizophrenia; N17.9 Acute kidney failure, unspecified; N39.0 Urinary tract infection, site not specified; K82.0 Obstruction of gallbladder; I12.9 Hypertensive chronic kidney disease with stage 1 through stage 4 chronic kidney disease, or unspecified chronic kidney disease; N18.3 Chronic kidney disease, stage 3 (moderate); E86.0 Dehydration; F31.9 Bipolar disorder, unspecified; D50.9 Iron deficiency anemia, unspecified; I45.10 Unspecified right bundle-branch block; R73.9 Hyperglycemia, unspecified; K59.09 Other constipation; E66.9 Obesity, unspecified; Z68.31 Body mass index [BMI] 31.0-31.9, adult; Z91.19 Patient's noncompliance with other medical treatment and regimen; Z88.0 Allergy status to penicillin

== ENCOUNTER 2018-04-13 18:15 | Emergency (ER) | payer MEDICARE, BC ==
[2018-04-13 18:16] VITALS: BMI 27.4
[2018-04-13 18:25] VITALS: RESP 18
[2018-04-13] MEDS ORDERED: Sodium Chloride 0.9% 1,000 ML IV STA ×2 (18:40→19:24)
--- NOTE | 2018-04-13 18:44 | ED PDOC ---
Arrival/HPI - General Chief Complaint: Female Genitourinary Time Seen by Provider: 04/13/18 18:19 Historian: Patient - History of Present Illness Narrative History of Present Illness (Text): 04/13/18 18:39 72 year old female, whose past medical history includes hypertension, diverticultitis, and anxiety, who presents to the Emergency Department complaining of burning with urination today. Patient notes associated feeling of a "bubble" in her vagina and general hot feeling. Patient was discharged yesterday on antibiotics (metronidazole, ciproflaxin) from hospital for diverticulitis. Patient denies any fever, chills, vaginal bleeding, chest pain, back pain, nausea, abdominal pain, or any other complaints. PMD: Dr. Wright Time/Duration: Prior to Arrival Symptom Onset: Gradual Symptom Course: Unchanged Activities at Onset: Light Context: Home Past Medical History - Provider Review Nursing Documentation Reviewed: Yes - Infectious Disease Hx of Infectious Diseases: None - Reproductive Menopause: Yes - Cardiac Hx Cardiac Disorders: Yes Hx Hypertension: Yes - Pulmonary Hx Respiratory Disorders: No - Neurological Hx Neurological Disorder: Yes Other/Comment: "nerve issues" - HEENT Hx HEENT Disorder: No - Renal Hx Renal Disorder: No - Endocrine/Metabolic Hx Endocrine Disorders: No - Hematological/Oncological Hx Blood Disorders: No - Integumentary Hx Dermatological Disorder: No - Musculoskeletal/Rheumatological Hx Musculoskeletal Disorders: No - Gastrointestinal Hx Gastrointestinal Disorders: No - Genitourinary/Gynecological Hx Genitourinary Disorders: No - Psychiatric Hx Psychophysiologic Disorder: Yes Hx Depression: Yes Hx Substance Use: No Family/Social History - Physician Review Nursing Documentation Reviewed: Yes Family/Social History: Unknown Family HX Smoking Status: Never Smoked Hx Alcohol Use: No Hx Substance Use: No Allergies/Home Meds Allergies/Adverse Reactions: Allergies Penicillins Allergy (Verified 04/13/18 18:24) ANAPHYLAXIS lemon Adverse Reaction (Verified 04/13/18 18:24) RASH Home Medications: Home Meds Medication Instructions Recorded Confirmed Lisinopril [Zestril] 20 mg PO DAILY 10/16/17 04/13/18 Propranolol [Inderal] 10 mg PO DAILY 10/16/17 04/13/18 chlorproMAZINE [Thorazine] 1 tab PO HS 03/18/18 04/13/18 Review of Systems - Physician Review All systems were reviewed & negative as marked: Yes - Review of Systems Constitutional: Normal Eyes: Normal ENT: Normal Respiratory: Normal. absent: SOB, Cough Cardiovascular: Normal. absent: Chest Pain Gastrointestinal: Normal. absent: Abdominal Pain, Diarrhea, Nausea, Vomiting Genitourinary Female: Normal. absent: Dysuria, Frequency Musculoskeletal: Normal. absent: Back Pain, Neck Pain Skin: Normal. absent: Rash Neurological: Normal. absent: Headache, Dizziness Endocrine: Normal Hemo/Lymphatic: Normal Psychiatric: Normal Physical Exam Vital Signs Reviewed: Yes Vital Signs Temp Pulse Resp BP Pulse Ox 04/13/18 19:17 98.5 F 129 H 18 121/74 98 04/13/18 18:24 97.6 F 137 H 18 132/75 95 Temperature: Afebrile Blood Pressure: Normal Pulse: Tachycardic Respiratory Rate: Normal Appearance: Positive for: Well-Appearing, Non-Toxic, Comfortable Pain Distress: None Mental Status: Positive for: Alert and Oriented X 3 - Systems Exam Head: Present: Atraumatic, Normocephalic Pupils: Present: PERRL Extroacular Muscles: Present: EOMI Conjunctiva: Present: Normal Mouth: Present: Moist Mucous Membranes Neck: Present: Normal Range of Motion Respiratory/Chest: Present: Clear to Auscultation, Good Air Exchange. No: Respiratory Distress, Accessory Muscle Use Cardiovascular: Present: Regular Rate and Rhythm, Normal S1, S2. No: Murmurs Abdomen: Present: Normal Bowel Sounds. 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 No: Vaginal Discharge, Vaginal Bleeding, Vaginal Lesions Back: Present: Normal Inspection Upper Extremity: Present: Normal Inspection. No: Cyanosis, Edema Lower Extremity: Present: Normal Inspection. No: Edema Neurological: Present: GCS=15, CN II-XII Intact, Speech Normal Skin: Present: Warm, Dry, Normal Color. No: Rashes Psychiatric: Present: Alert, Oriented x 3, Normal Insight, Normal Concentration Medical Decision Making ED Course and Treatment: 04/13/18 18:47 Impression: 72 year old female presents to the Emergency Department complaining of dysuria r /o UTI/Urosepsis Plan: -- VBG -- EKG -- Labs -- Chest X-ray -- Blood Culture -- Urine Culture -- Sodium Chloride -- UA -- Reassess and disposition Progress Notes: Vaginal exam performed, witnessed by Chandrika Ch. Exam showed normal results. 04/13/18 18:51 EKG reviewed, shows Sinus Tachycardia at 138 bpm. 1st degree AV block. Incomplete rt bundle branch block. ST wave changes in inferior lateral leads. Similar to previous EKG findings on 04/07/18. Translation tried with Chadian instrumentation specialist, agent number [id number], but patient prefers to speak Chadian which she says she speaks better. 04/13/18 20:01 Case was discussed with Dr. Wright, PMD, who states she was discharged yesterday with cipro/flagyl. She was evaluated by Psych as well during admission and not accepted to [facility]. Today, if she improves with fluids she can be discharged home to follow up with him as an outpatient. Case signed out to Dr. Spain, who will reevaluate after fluids, f/u UA, reevaluate and disposition. - Lab Interpretations Lab Results: 04/13/18 18:45 04/13/18 18:45 Lab Results 04/13/18 18:45: Sodium 140, Chloride 104, Potassium 4.1, Carbon Dioxide 24, Anion Gap 17, BUN 20, Creatinine 1.4 H, Est GFR ( Amer) 45, Est GFR (Non- Af Amer) 37, Random Glucose 122 H, Calcium 9.6, Magnesium 2.1, Total Bilirubin 0.4, AST 59 H, ALT 48, Alkaline Phosphatase 68, Total Protein 8.0, Albumin 4.2, Globulin 3.8, Albumin/Globulin Ratio 1.1 04/13/18 18:45: pO2 87 H, VBG pH 7.42, VBG pCO2 39.0 L, VBG HCO3 25.3, VBG Total CO2 26.5, VBG O2 Sat (Calc) 97.1 H, VBG Base Excess 0.8, VBG Potassium 4.5 , Sodium 138.0, Chloride 106.0, Glucose 128 H, Lactate 1.2, FiO2 21.0, Venous Blood Potassium 4.5 04/13/18 18:45: WBC 7.2 D, RBC 3.86, Hgb 11.3 L, Hct 33.3 L, MCV 86.3, MCH 29.3 , MCHC 33.9, RDW 13.9, Plt Count 335, MPV 9.0, Gran % 74.7 H, Lymph % (Auto) 16.5 L, [place] % (Auto) 7.1 H, Eos % (Auto) 1.3 L, Baso % (Auto) 0.4, Gran # 5.36 , Lymph # (Auto) 1.2, [place] # (Auto) 0.5, Eos # (Auto) 0.1, Baso # (Auto) 0.03 - RAD Interpretation Radiology Orders: 04/13/18 18:38 CHEST PORTABLE [RAD] Stat - Medication Orders Current Medication Orders: Sodium Chloride (Sodium Chloride 0.9%) 1,000 mls @ 999 mls/hr IV .Q1H1M STA Stop: 04/13/18 20:24 Last Admin: 04/13/18 19:43 Dose: 999 mls/hr eMAR Start Stop Document 04/13/18 19:43 RD (Rec: 04/13/18 19:43 RD [id number]) Intravenous Solution Start Date 04/13/18 Start Time 19:43 End Date 04/13/18 End time 20:43 Total Infusion Time 60 Discontinued Medications Sodium Chloride (Sodium Chloride 0.9%) 1,000 mls @ 999 mls/hr IV .Q1H1M STA Stop: 04/13/18 19:40 Last Admin: 04/13/18 18:52 Dose: 999 mls/hr eMAR Start Stop Document 04/13/18 18:52 GMI (Rec: 04/13/18 18:53 GMI [id number]) Intravenous Solution Start Date 04/13/18 Start Time 18:53 End Date 04/13/18 End time 19:55 Total Infusion Time 62 - Scribe Statement The provider has reviewed the documentation as recorded by the Scribe Chandrika Ch All medical record entries made by the Scribe were at my direction and personally dictated by me. I have reviewed the chart and agree that the record accurately reflects my personal performance of the history, physical exam, medical decision making, and the department course for this patient. I have also personally directed, reviewed, and agree with the discharge instructions and disposition. Disposition/Present on Arrival - Present on Arrival Any Indicators Present on Arrival: No History of DVT/PE: No History of Uncontrolled Diabetes: No Urinary Catheter: No History of Decub. Ulcer: No History Surgical Site Infection Following: None - Disposition Have Diagnosis and Disposition been Completed?: No Diagnosis: Dysuria Disposition Time: 20:04 Condition: GOOD Forms: [employer] (Chadian)
[2018-04-13 19:06] LABS: BASO # 0.03 K/mm3 (0.0-2.0); BASO % 0.4 % (0.0-3.0); EOS # 0.1 (0.0-0.7); EOS % 1.3 % (1.5-5.0); GRAN # 5.36 (1.4-6.5); GRAN % 74.7 % (50.0-68.0); HEMOGLOBIN 11.3 g/dL (12.0-16.0); LYMPH # 1.2 (1.2-3.4); LYMPH % 16.5 % (22.0-35.0); MEAN CELL VOLUME 86.3 fl (80.0-105.0); MEAN CORPUSCULAR HEMOGLOBIN 29.3 pg (25.0-35.0); MEAN CORPUSCULAR HGB CONC 33.9 g/dl (31.0-37.0); MONO # 0.5 (0.1-0.6); MONO % 7.1 % (1.0-6.0); RBC 3.86 10^6/uL (3.5-6.1); RED CELL DISTRIBUTION WIDTH 13.9 % (11.5-14.5); WHITE BLOOD COUNT 7.2 10^3/ul (4.5-11.0)
[2018-04-13 19:10] LABS: VENOUS BLOOD GAS BASE EXCESS 0.8 mmol/L (0.0-2.0); VENOUS BLOOD GAS PO2 87 mm/Hg (30-55); VENOUS BLOOD PH 7.42 (7.32-7.43)
[2018-04-13 19:13] LABS: ALB/GLOB RATIO 1.1 (1.1-1.8); ALBUMIN 4.2 g/dL (3.0-4.8); CALCIUM 9.6 mg/dL (8.4-10.5)
[2018-04-13 19:19] VITALS: TEMP 98.5
[2018-04-13 20:42] LABS: PH,URINE 6.5 (4.7-8.0); URINE BILIRUBIN NEGATIVE (NEGATIVE); URINE BLOOD NEGATIVE (NEGATIVE); URINE GLUCOSE (UA) NEGATIVE (NEGATIVE); URINE LEUKOCYTE ESTERASE TRACE Leu/uL (NEGATIVE); URINE PROTEIN NEGATIVE mg/dL (<30 mg/dL); URINE UROBILINOGEN 0.2 E.U./dL (<1 E.U./dL)
[2018-04-13 20:52] LABS: URINE APPEARANCE CLEAR (CLEAR); URINE COLOR YELLOW (YELLOW)
--- NOTE | 2018-04-13 20:54 | ED PDOC ---
Physical Exam Vital Signs Reviewed: Yes Vital Signs Temp Pulse Resp BP Pulse Ox 04/13/18 21:08 85 18 127/80 98 04/13/18 20:36 137 H 18 124/78 100 04/13/18 19:17 98.5 F 129 H 18 121/74 98 04/13/18 18:24 97.6 F 137 H 18 132/75 95 Temperature: Afebrile Blood Pressure: Normal Pulse: Tachycardic Respiratory Rate: Normal Appearance: Positive for: Well-Appearing, Non-Toxic, Comfortable Pain Distress: None Mental Status: Positive for: Alert and Oriented X 3 - Systems Exam Head: Present: Atraumatic, Normocephalic Pupils: Present: PERRL Extroacular Muscles: Present: EOMI Conjunctiva: Present: Normal Mouth: Present: Moist Mucous Membranes Neck: Present: Normal Range of Motion Respiratory/Chest: Present: Clear to Auscultation, Good Air Exchange. No: Respiratory Distress, Accessory Muscle Use Cardiovascular: Present: Regular Rate and Rhythm, Normal S1, S2. No: Murmurs Abdomen: No: Tenderness, Distention, Peritoneal Signs Back: Present: Normal Inspection Upper Extremity: Present: Normal Inspection. No: Cyanosis, Edema Lower Extremity: Present: Normal Inspection. No: Edema Neurological: Present: GCS=15, CN II-XII Intact, Speech Normal Skin: Present: Warm, Dry, Normal Color. No: Rashes Psychiatric: Present: Alert, Oriented x 3, Normal Insight, Normal Concentration Medical Decision Making ED Course and Treatment: 04/13/18 20:52 Case endorsed to me by Dr. Collins, pending UA results. 04/13/18 21:11 Patient's heart rate is 84 with no complaints. On re-evaluation, patient feels better and is in no acute distress. I have discussed the results and plan with the patient, who expresses understanding. Patient in agreement with plan to be discharged home. Patient is stable for discharge. Patient was instructed to follow up with physician or return if symptoms worsen or new concerning symptoms arise. - Lab Interpretations Lab Results: 04/13/18 18:45 04/13/18 18:45 Lab Results 04/13/18 20:25: Urine Color Yellow, Urine Appearance Clear, Urine pH 6.5, Ur Specific [place] 1.010, Urine Protein Negative, Urine Glucose (UA) Negative, Urine Ketones Negative, Urine Blood Negative, Urine Nitrate Negative, Urine Bilirubin Negative, Urine Urobilinogen 0.2, Ur Leukocyte Esterase Trace H, Urine RBC Negative, Urine WBC 1 - 3, Ur Epithelial Cells 1 - 3, Urine Bacteria Few 04/13/18 18:45: Sodium 140, Chloride 104, Potassium 4.1, Carbon Dioxide 24, Anion Gap 17, BUN 20, Creatinine 1.4 H, Est GFR ( Amer) 45, Est GFR (Non- Af Amer) 37, Random Glucose 122 H, Calcium 9.6, Magnesium 2.1, Total Bilirubin 0.4, AST 59 H, ALT 48, Alkaline Phosphatase 68, Total Protein 8.0, Albumin 4.2, Globulin 3.8, Albumin/Globulin Ratio 1.1 04/13/18 18:45: pO2 87 H, VBG pH 7.42, VBG pCO2 39.0 L, VBG HCO3 25.3, VBG Total CO2 26.5, VBG O2 Sat (Calc) 97.1 H, VBG Base Excess 0.8, VBG Potassium 4.5 , Sodium 138.0, Chloride 106.0, Glucose 128 H, Lactate 1.2, FiO2 21.0, Venous Blood Potassium 4.5 04/13/18 18:45: WBC 7.2 D, RBC 3.86, Hgb 11.3 L, Hct 33.3 L, MCV 86.3, MCH 29.3 , MCHC 33.9, RDW 13.9, Plt Count 335, MPV 9.0, Gran % 74.7 H, Lymph % (Auto) 16.5 L, [place] % (Auto) 7.1 H, Eos % (Auto) 1.3 L, Baso % (Auto) 0.4, Gran # 5.36 , Lymph # (Auto) 1.2, [place] # (Auto) 0.5, Eos # (Auto) 0.1, Baso # (Auto) 0.03 I have reviewed the lab results: Yes - RAD Interpretation Radiology Orders: 04/13/18 18:38 CHEST PORTABLE [RAD] Stat - Medication Orders Current Medication Orders: Discontinued Medications Sodium Chloride (Sodium Chloride 0.9%) 1,000 mls @ 999 mls/hr IV .Q1H1M STA Stop: 04/13/18 19:40 Last Admin: 04/13/18 18:52 Dose: 999 mls/hr eMAR Start Stop Document 04/13/18 18:52 GMI (Rec: 04/13/18 18:53 GMI [id number]) Intravenous Solution Start Date 04/13/18 Start Time 18:53 End Date 04/13/18 End time 19:55 Total Infusion Time 62 Sodium Chloride (Sodium Chloride 0.9%) 1,000 mls @ 999 mls/hr IV .Q1H1M STA Stop: 04/13/18 20:24 Last Admin: 04/13/18 19:43 Dose: 999 mls/hr eMAR Start Stop Document 04/13/18 19:43 RD (Rec: 04/13/18 19:43 RD [id number]) Intravenous Solution Start Date 04/13/18 Start Time 19:43 End Date 04/13/18 End time 20:43 Total Infusion Time 60 - Scribe Statement The provider has reviewed the documentation as recorded by the Scribe Chandrika Ch All medical record entries made by the Scribe were at my direction and personally dictated by me. I have reviewed the chart and agree that the record accurately reflects my personal performance of the history, physical exam, medical decision making, and the department course for this patient. I have also personally directed, reviewed, and agree with the discharge instructions and disposition. Disposition/Present on Arrival - Present on Arrival Any Indicators Present on Arrival: No History of DVT/PE: No History of Uncontrolled Diabetes: No Urinary Catheter: No History of Decub. Ulcer: No History Surgical Site Infection Following: None - Disposition Have Diagnosis and Disposition been Completed?: Yes Diagnosis: Dysuria Disposition: HOME/ ROUTINE Disposition Time: 21:20 Condition: GOOD Discharge Instructions (ExitCare): Dysuria, Adult (DC) Additional Instructions: MARLENE VILLALOBOS, thank you for letting us take care of you today. Your provider was Shalini Spain MD and you were treated for DISYURYA. The emergency medical care you received today was directed at your acute symptoms. If you were prescribed any medication, please fill it and take as directed. It may take several days for your symptoms to resolve. Return to the Emergency Department if your symptoms worsen, do not improve, or if you have any other problems. Please contact your doctor or call one of the physicians/clinics you have been referred to that are listed on the Patient Visit Information form that is included in your discharge packet. Bring any paperwork you were given at discharge with you along with any medications you are taking to your follow up visit. Our treatment cannot replace ongoing medical care by a primary care provider outside of the emergency department. Thank you for allowing the [facility] team to be part of your care today. If you had an X-Ray or CT scan: A Radiologist will review the ED reading if any change in treatment is needed we will contact you. If you had a blood, urine, or wound culture: It will take several days for the results, if any change in treatment is needed we will contact you. If you had an STI test: It will take 48 hours for the results. Please call after 1 week if you have not heard back. Forms: [employer] (Welsh)
[2018-04-13 20:57] LABS: URINE BACTERIA FEW (NEG); URINE RBC NEGATIVE /hpf (0-2)
[2018-04-13] MEDS ORDERED: Labetalol 5 mg/ml Inj 20ML IV STA (20:58)
[2018-04-13 21:09] VITALS: BP 127/80; PULSE 85; O2SAT 98
--- NOTE | 2018-04-14 09:19 | RAD ---
HISTORY: Sepsis Patient COMPARISON: Chest x-ray performed 04/08/18 TECHNIQUE: Chest, one view. FINDINGS: Examination limited by habitus. LUNGS: No focal consolidation. Please note that chest x-ray has limited sensitivity for the detection of pulmonary masses. PLEURA: No significant pleural effusion identified. No definite pneumothorax . CARDIOVASCULAR: Heart size appears within normal limits. OSSEOUS STRUCTURES: Degenerative changes of the spine. VISUALIZED UPPER ABDOMEN: Elevation/ eventration of the right hemidiaphragm. OTHER FINDINGS: None. IMPRESSION: No focal consolidation identified.
--- NOTE | 2018-04-15 05:35 | CARD ---
APPROVED REPORT Date of service: 04/13/2018 EKG Measurement Heart [id number] [id number] <Conclusion> Sinus tachycardia with 1st degree AV block Incomplete right bundle branch block Possible Lateral infarct, age undetermined Inferior infarct, age undetermined Abnormal ECG
== END 2018-04-13 21:20 | disposition home or self-care (01) ==
LOC: ED 18:15
DX: R30.0 Dysuria (principal); I10 Essential (primary) hypertension
CPT/HCPCS: 71045; 80053; 81001; 82803; 83735; 85025; 87040; 87086; 93005; 96360; 96361; 99284; J7030

== ENCOUNTER 2018-04-14 18:10 | Emergency (ER) | payer MEDICARE, BC ==
[2018-04-14 18:12] VITALS: BMI 28.6
[2018-04-14 18:16] VITALS: TEMP 98.2
--- NOTE | 2018-04-14 18:42 | ED PDOC ---
Arrival/HPI - General Chief Complaint: Psychiatric Evaluation Time Seen by Provider: 04/14/18 18:18 Historian: Patient - History of Present Illness Narrative History of Present Illness (Text): 04/14/18 18:39 72 year old female, whose past medical history includes hypertension, who presents to the ED c/o hearing voices. Patient requests to see Dr. Wright. States she had a dream last night where she heard voices. Patient states she hears nothing when awake. Patient was d/c from hospital 2 days ago on medication for diverticulitis. Patient denies any fever, chills, chest pain, back pain, nausea, vomiting, diarrhea, suicidal ideation, homicidal ideation, or any other complaints. Time/Duration: 24 hours Symptom Onset: Gradual Symptom Course: Improving Activities at Onset: Light Context: Home Past Medical History - Provider Review Nursing Documentation Reviewed: Yes - Infectious Disease Hx of Infectious Diseases: None - Cardiac Hx Cardiac Disorders: Yes Hx Hypertension: Yes - Pulmonary Hx Respiratory Disorders: No - Neurological Hx Neurological Disorder: Yes Other/Comment: "nerve issues" - HEENT Hx HEENT Disorder: No - Renal Hx Renal Disorder: No - Endocrine/Metabolic Hx Endocrine Disorders: No - Hematological/Oncological Hx Blood Disorders: No - Integumentary Hx Dermatological Disorder: No - Musculoskeletal/Rheumatological Hx Musculoskeletal Disorders: No - Gastrointestinal Hx Gastrointestinal Disorders: No - Genitourinary/Gynecological Hx Genitourinary Disorders: No - Psychiatric Hx Psychophysiologic Disorder: Yes Hx Depression: Yes Hx Substance Use: No Family/Social History - Physician Review Nursing Documentation Reviewed: Yes Family/Social History: Unknown Family HX Smoking Status: Never Smoked Hx Alcohol Use: No Hx Substance Use: No Allergies/Home Meds Allergies/Adverse Reactions: Allergies Penicillins Allergy (Verified 04/14/18 18:13) ANAPHYLAXIS lemon Adverse Reaction (Verified 04/14/18 18:13) RASH Home Medications: Home Meds Medication Instructions Recorded Confirmed Lisinopril [Zestril] 20 mg PO DAILY 10/16/17 04/14/18 Propranolol [Inderal] 10 mg PO DAILY 10/16/17 04/14/18 chlorproMAZINE [Thorazine] 1 tab PO HS 03/18/18 04/14/18 Review of Systems - Physician Review All systems were reviewed & negative as marked: Yes - Review of Systems Constitutional: Normal Eyes: Normal ENT: Normal Respiratory: Normal. absent: SOB, Cough Cardiovascular: Normal. absent: Chest Pain Gastrointestinal: Normal. absent: Abdominal Pain Genitourinary Female: Normal. absent: Dysuria, Frequency Musculoskeletal: Normal. absent: Back Pain, Neck Pain Skin: Normal. absent: Rash Neurological: Normal. absent: Headache Endocrine: Normal Hemo/Lymphatic: Normal Psychiatric: Normal Physical Exam Vital Signs Reviewed: Yes Vital Signs Temp Pulse Resp BP Pulse Ox 04/14/18 19:20 87 19 122/70 100 04/14/18 18:13 98.2 F 90 16 113/77 98 04/14/18 18:10 98.2 F 90 16 113/77 98 Temperature: Afebrile Blood Pressure: Normal Pulse: Regular Respiratory Rate: Normal Appearance: Positive for: Well-Appearing, Non-Toxic, Comfortable Pain Distress: None Mental Status: Positive for: Alert and Oriented X 3 - Systems Exam Head: Present: Atraumatic, Normocephalic Pupils: Present: PERRL Extroacular Muscles: Present: EOMI Conjunctiva: Present: Normal Mouth: Present: Moist Mucous Membranes Neck: Present: Normal Range of Motion Respiratory/Chest: Present: Clear to Auscultation, Good Air Exchange. No: Respiratory Distress, Accessory Muscle Use Cardiovascular: Present: Regular Rate and Rhythm, Normal S1, S2. No: Murmurs Abdomen: No: Tenderness, Distention, Peritoneal Signs Back: Present: Normal Inspection Upper Extremity: Present: Normal Inspection, Other (bruising due to blood draws from hospital admission). No: Cyanosis, Edema Lower Extremity: Present: Normal Inspection. No: Edema Neurological: Present: GCS=15, CN II-XII Intact, Speech Normal Skin: Present: Warm, Dry, Normal Color. No: Rashes Psychiatric: Present: Alert, Oriented x 3, Normal Insight, Normal Concentration Medical Decision Making ED Course and Treatment: 04/14/18 18:43 Impression: 72 ear old female presents to the ED c/o hearing voices last night. Plan: -- Reassess and Disposition Progress Notes: - Scribe Statement The provider has reviewed the documentation as recorded by the Scribe Chandrika Ch All medical record entries made by the Scribe were at my direction and personally dictated by me. I have reviewed the chart and agree that the record accurately reflects my personal performance of the history, physical exam, medical decision making, and the department course for this patient. I have also personally directed, reviewed, and agree with the discharge instructions and disposition. Disposition/Present on Arrival - Present on Arrival Any Indicators Present on Arrival: No History of DVT/PE: No History of Uncontrolled Diabetes: No Urinary Catheter: No History of Decub. Ulcer: No History Surgical Site Infection Following: None - Disposition Have Diagnosis and Disposition been Completed?: Yes Diagnosis: Diverticulitis Disposition: HOME/ ROUTINE Disposition Time: 18:40 Condition: GOOD Discharge Instructions (ExitCare): Diverticulitis (DC) Additional Instructions: MARLENE VILLALOBOS, thank you for letting us take care of you today. The emergency medical care you received today was directed at your acute symptoms. If you were prescribed any medication, please fill it and take as directed. It may take several days for your symptoms to resolve. Return to the Emergency Department if your symptoms worsen, do not improve, or if you have any other problems. Please contact your doctor or call one of the physicians/clinics you have been referred to that are listed on the Patient Visit Information form that is included in your discharge packet. Bring any paperwork you were given at discharge with you along with any medications you are taking to your follow up visit. Our treatment cannot replace ongoing medical care by a primary care provider outside of the emergency department. Thank you for allowing the [facility] team to be part of your care today. Please continue taking your medications as prescribed. Follow up with Dr. Wright as scheduled for re-evaluation and further management. Referrals: Fitz Wright MD [Staff Provider] - Follow up with primary Forms: [employer] (Faroese)
[2018-04-14 19:21] VITALS: BP 122/70; PULSE 87; RESP 19; O2SAT 100
== END 2018-04-14 19:20 | disposition home or self-care (01) ==
LOC: ED 18:10
DX: K57.92 Diverticulitis of intestine, part unspecified, without perforation or abscess without bleeding (principal); I10 Essential (primary) hypertension

== ENCOUNTER 2018-06-05 07:40 | Day surgery (SDC) | payer MEDICARE, BC ==
[2018-05-31 17:44] VITALS: BMI 30.7
[2018-06-05] MEDS ORDERED: Sodium Chloride 0.9% 1,000 ML IV SCH (08:45)
[2018-06-05] MEDS ORDERED: Propofol 10 mg/ml Inj (20 ML) ONE (08:48)
[2018-06-05 11:15] VITALS: BP 149/65; PULSE 71; RESP 20; TEMP 97.5; O2SAT 98
== END 2018-06-05 10:53 | disposition home or self-care (01) ==
LOC: ENDO 07:40
PROVIDERS: ATTEND Specialist
DX: K57.32 Diverticulitis of large intestine without perforation or abscess without bleeding (principal); K63.5 Polyp of colon; K64.8 Other hemorrhoids; I10 Essential (primary) hypertension
CPT/HCPCS: 45385; 88305; J2001; J2704; J7030

== ENCOUNTER 2018-09-26 07:13 | Outpatient (CLI) | payer MEDICARE, BC | END 2018-09-26 07:14 | disposition home or self-care (01) | LOC: LAB 07:13 | DX: E55.9 Vitamin D deficiency, unspecified (principal); N39.0 Urinary tract infection, site not specified; D64.9 Anemia, unspecified ==